=== PATIENT | male | born 1945 | race Caucasian/White ===

== ENCOUNTER 2020-03-23 11:42 | Observation (INO) | payer MEDICARE, OTHER ==
[2020-03-23] MEDS ORDERED: Aspirin 81 MG Tab.Chew PO ONE (11:58)
[2020-03-23] MEDS ORDERED: Nitroglycerin 0.4 MG Tab.SL SL ONE (11:58)
[2020-03-23] MEDS ORDERED: Aspirin 81 MG Tab.Chew ONE (12:00)
[2020-03-23] MEDS ORDERED: Nitroglycerin 0.4 MG Tab.SL ONE (12:00)
[2020-03-23 12:28] LABS: PTT,PARTIAL THROMBOPLSTIN TIME 28.3 SEC (24.5-32.8)
[2020-03-23 12:40] LABS: CHLORIDE,CL 97 mmol/L (98-107); SODIUM,NA 136 mmol/L (136-145)
[2020-03-23] MEDS ORDERED: Clindamycin in 0.9 % Sod Chlor 600 MG in Premix Bag 1 BAG IV ONE ×2 (13:28)
[2020-03-23] MEDS ORDERED: Sodium Chloride 0.9% 1,000 ML IV ONE (13:29)
--- NOTE | 2020-03-23 13:39 | EDM.PDOC ---
ED HPI GENERAL MEDICAL PROBLEM - General Chief Complaint: Cardiovascular Problem Stated Complaint: chest discomfort Time Seen by Provider: 03/23/20 12:00 Source of Information: Reports: Patient, Provider History Limitations: Reports: No Limitations - History of Present Illness INITIAL COMMENTS - FREE TEXT/NARRATIVE: Patient sent from [place] home for evaluation of two day history central anterior chest discomfort. First noted the discomfort Saturday morning. Slightly worse with deep breath. No changes with movement. A bit better when he lays flat. No changes with eating/drinking/activity. /10 in severity. Pretty much constant. No previous similar pain. Denies recent illness/injury. No fever/chills. No new cough. Denies increased SOB. Has COPD. Is on supplemental O2 and nebs regularly. Mid-Sternal Pain Score (Numeric/FACES): 6 - Related Data Allergies Allergy/AdvReac Type Severity Reaction Status Date / Time No Known Allergies Allergy Verified 03/23/20 11:43 Home Meds: Home Meds Acetaminophen [Tylenol Extra Strength] 1,000 mg PO TID@,12,09/04/18 [ History] Albuterol Sulfate [Proair Respiclick] 2 inh INH Q6H PRN 09/04/18 [History] Budesonide/Formoterol Fumarate [Symbicort 160-4.5 Mcg Inhaler] 2 inh INH BID@ 0700,1630 09/04/18 [History] Empagliflozin [Jardiance] 10 mg PO DAILY@0700 09/04/18 [History] FLUoxetine HCl [Prozac] 20 mg PO DAILY@0700 09/04/18 [History] Furosemide [Lasix] 60 mg PO DAILY@0700 09/04/18 [History] Gabapentin [Neurontin] 200 mg PO DAILY@0700 09/04/18 [History] Gabapentin [Neurontin] 400 mg PO DAILY@2100 09/04/18 [History] Insulin Aspart [NovoLOG] 6 units SUBCUT DAILY@1630 09/04/18 [History] Insulin Aspart [NovoLOG] 8 units SUBCUT DAILY@1200 09/04/18 [History] Insulin Glarg,Human.Rec.Analog [Lantus] 50 units SUBCUT DAILY@0600 09/04/18 [ History] Insulin Glarg,Human.Rec.Analog [Lantus] 74 units SUBCUT DAILY@2100 09/04/18 [ History] Ipratropium/Albuterol Sulfate [Iprat-Albut 0.5-3(2.5) MG/3 ML] 1 ampule INH Q6H PRN 09/04/18 [History] Ipratropium/Albuterol Sulfate [Iprat-Albut 0.5-3(2.5) MG/3 ML] 1 vial INH BID@ ,09/04/18 [History] Ipratropium/Albuterol Sulfate [Iprat-Albut 0.5-3(2.5) mg/3 ml] 1 ampule INH Q4H PRN 09/04/18 [History] Losartan [Cozaar] 12.5 mg PO DAILY@69909/04/18 [History] Melatonin 9 mg PO DAILY@209909/04/18 [History] Metoprolol Tartrate 12.5 mg PO BID@,209909/04/18 [History] Omeprazole 20 mg PO BID@,209909/04/18 [History] Propylene Glycol/Peg 400 [Systane 0.3-0.4% Eye Drops] 1 drop EYEBOTH TID PRN [History] Sennosides/Docusate Sodium [Senna-Docusate Sodium Tablet] 2 tab PO BID@07, 162909/04/18 [History] Simvastatin [Zocor] 40 mg PO DAILY@209909/04/18 [History] Tiotropium [Spiriva HandiHaler] 2 inh INH DAILY@69909/04/18 [History] Triamcinolone Acetonide [Triamcinolone Acetonide 0.025%] 1 dose TOP BID PRN [History] glipiZIDE [Glucotrol] 20 mg PO BID@,162909/04/18 [History] metFORMIN HCl [Metformin HCl] 1,000 mg PO BID@07,162909/04/18 [History] polyethylene glycoL 3350 [MiraLAX] 17 gm PO DAILY PRN 09/04/18 [History] predniSONE [Prednisone] 5 mg PO DAILY@0709/04/18 [History] Gabapentin [Neurontin] 100 mg PO BEDTIME 03/23/20 [History] Mag Hydrox/Aluminum Hyd/Simeth [Mylanta Maximum Strength Liq] 20 ml PO QID PRN 03/23/20 [History] Past Medical History HEENT History: Reports: Impaired Vision Cardiovascular History: Reports: Heart Failure, High Cholesterol, Hypertension, PVD Respiratory History: Reports: COPD, Other (See Below) Other Respiratory History: Oxygen dependant COPD Gastrointestinal History: Reports: Other (See Below) Other Gastrointestinal History: Heme positive stools x 3 Genitourinary History: Reports: Other (See Below) Other Genitourinary History: Chronic Kidney Disease Musculoskeletal History: Reports: Back Pain, Chronic Neurological History: Reports: Headaches, Chronic Psychiatric History: Reports: Depression Endocrine/Metabolic History: Reports: Diabetes, Type II, Obesity/BMI 30+ Hematologic History: Reports: Polycythemia - Past Surgical History GI Surgical History: Reports: Colonoscopy Social & Family History - Tobacco Use Smoking Status *Q: Former Smoker Used Tobacco, but Quit: Yes Month/Year Tobacco Last Used: - Caffeine Use Caffeine Use: Reports: Coffee, Soda - Recreational Drug Use Recreational Drug Use: No ED ROS GENERAL - Review of Systems Review Of Systems: See Below Constitutional: Denies: Fever, Chills, Malaise, Weakness, Night Sweats, Diaphoresis, Decreased Appetite, Weight Loss, Weight Gain HEENT: Denies: Rhinitis, Sinus Problem, Throat Pain, Throat Swelling, Vertigo, Vision Change Respiratory: Reports: Pleuritic Chest Pain, Other (No acute changes in regards to cough/wheeze/SOB from baseline). Denies: Sputum Cardiovascular: Reports: Chest Pain. Denies: Edema, Lightheadedness, Palpitations, Syncope GI/Abdominal: Reports: No Symptoms : Reports: No Symptoms Musculoskeletal: Reports: Other (no acute changes from baseline) Skin: Reports: Other (no acute changes) Neurological: Denies: Confusion, Dizziness, Headache, Numbness, Paresthesia, Trouble Speaking, Change in Speech Psychiatric: Reports: No Symptoms Immunologic: Reports: No Symptoms ED EXAM, GENERAL - Physical Exam Exam: See Below Exam Limited By: No Limitations General Appearance: Alert, WD/WN, No Apparent Distress Eye Exam: Bilateral Eye: EOMI, PERRL Ears: Normal External Exam, Hearing Grossly Normal Nose: No: Nasal Deformity, Nasal Swelling, Nasal Drainage Throat/Mouth: Normal Lips, Normal Voice, No Airway Compromise Head: Atraumatic, Normocephalic Neck: Supple, Non-Tender, Full Range of Motion. No: Lymphadenopathy (L), Lymphadenopathy (R) Respiratory/Chest: No Respiratory Distress, Decreased Breath Sounds (throughout) , Rhonchi (mild/bilat), Wheezing (mild/bilat). No: Crackles, Rales, Stridor, Accessory Muscle Use, Retractions Cardiovascular: Regular Rate, Rhythm, No Edema, No Murmur Peripheral Pulses: 2+: Radial (L), Radial (R) GI/Abdominal: Soft, Non-Tender, Abnormal Bowel Sounds (diminished in general), Other (obese) (Male) Exam: Deferred Rectal (Males) Exam: Deferred Back Exam: No: CVA Tenderness (L), CVA Tenderness (R), Muscle Spasm Extremities: Non-Tender, Normal Capillary Refill, Other (equal strength) Neurological: Alert, Oriented, Normal Cognition, No Motor/Sensory Deficits Psychiatric: Normal Affect, Normal Mood Skin Exam: Warm, Dry, Intact, Normal Color EKG INTERPRETATION EKG Date: 03/23/20 Time: 11:52 Rhythm: NSR Rate (Beats/Min): 88 Logan: LAD-Left Logan Deviation P-Wave: Present QRS: Normal ST-T: Normal QT: Normal Course - Vital Signs Last Recorded V/S: Last Vital Signs Temp 35.9 C L 03/23/20 11:43 Pulse 90 03/23/20 13:40 Resp 17 03/23/20 13:40 BP 129/89 03/23/20 13:40 Pulse Ox 97 03/23/20 13:40 - Orders/Labs/Meds Orders: Active Orders 24 hr Category Date Time Status EKG Documentation Completion [RC] ASDIRECTED Care 03/23/20 12:05 Active Chest 2V [CR] Stat Exams 03/23/20 11:58 Taken Sodium Chloride 0.9% [Normal Saline] 1,000 ml Med 03/23/20 13:29 Ordered IV .BOLUS EKG 12 Lead [EK] Stat Ther 03/23/20 11:58 Ordered Medication Orders Acetaminophen (Tylenol Extra Strength) 1,000 mg PO TID@07,12,21 LAURA Albuterol/Ipratropium (Duoneb 3.0-0.5 Mg/3 Ml) 3 ml INH Q4H PRN PRN Reason: Dyspnea Albuterol/Ipratropium (Duoneb 3.0-0.5 Mg/3 Ml) 3 ml INH Q6H PRN PRN Reason: Dyspnea Albuterol/Ipratropium (Duoneb 3.0-0.5 Mg/3 Ml) 3 ml INH BID@0700,2100 PENDING SALE TO [facility] Fluoxetine HCl (Prozac) 20 mg PO DAILY@0700 PENDING SALE TO [facility] Furosemide (Lasix) 60 mg PO DAILY@0700 PENDING SALE TO [facility] Gabapentin (Neurontin) 100 mg PO BEDTIME LAURA Gabapentin (Neurontin) 200 mg PO DAILY@0700 PENDING SALE TO [facility] Gabapentin (Neurontin) 400 mg PO DAILY@2100 PENDING SALE TO [facility] Sodium Chloride (Normal Saline) 1,000 mls @ 125 mls/hr IV .BOLUS ONE Stop: 03/23/20 21:28 Last Admin: 03/23/20 13:44 Dose: 125 mls/hr Clindamycin/Sodium Chloride (600 mg/ Premix) 50 mls @ 150 mls/hr IV Q8H PENDING SALE TO [facility] Insulin Glargine (Lantus) 50 unit SUBCUT DAILY@0600 PENDING SALE TO [facility] Insulin Glargine (Lantus) 74 unit SUBCUT DAILY@2100 PENDING SALE TO [facility] Melatonin (Melatonin) 9 mg PO DAILY@2100 PENDING SALE TO [facility] Metoprolol Tartrate (Lopressor) 12.5 mg PO BID@ PENDING SALE TO [facility] Non-Formulary Medication (Budesonide/Formoterol) 2 inh INH BID@07,1630 PENDING SALE TO [facility] Non-Formulary Medication (Glipizide [Glucotrol]) 20 mg PO BID@,1630 PENDING SALE TO [facility] Non-Formulary Medication (Insulin Aspart) 6 units SUBCUT DAILY@1630 PENDING SALE TO [facility] Non-Formulary Medication (Insulin Aspart) 8 units SUBCUT DAILY@1200 PENDING SALE TO [facility] Non-Formulary Medication (Losartan [Cozaar]) 12.5 mg PO DAILY@0700 PENDING SALE TO [facility] Non-Formulary Medication (Mag Hydrox/Aluminum Hyd/Simeth [Mylanta Maximum Strength Liq]) 20 ml PO QID PRN PRN Reason: Indigestion Non-Formulary Medication (Metformin Hcl [Metformin Hcl]) 1,000 mg PO BID@0700, 1630 PENDING SALE TO [facility] Non-Formulary Medication (Propylene Glycol/Peg 400 [Systane 0.3-0.4% Eye Drops] ) 1 drop EYEBOTH TID PRN PRN Reason: Dry Eyes Non-Formulary Medication (Simvastatin [Zocor]) 40 mg PO DAILY@2100 PENDING SALE TO [facility] Pantoprazole Sodium (Protonix Iv) 40 mg IVPUSH DAILY PENDING SALE TO [facility] Polyethylene Glycol (Miralax) 17 gm PO DAILY PRN PRN Reason: Constipation Prednisone (Prednisone) 5 mg PO DAILY@0700 PENDING SALE TO [facility] Senna/Docusate Sodium (Senna Plus) 2 tab PO BID@0700,1630 PENDING SALE TO [facility] Tiotropium Hurley (Spiriva Handihaler) mcg INH DAILY@0700 PENDING SALE TO [facility] Triamcinolone Acetonide (Triamcinolone Acetonide 0.025%) gm TOP BID PRN PRN Reason: Rash Labs: Laboratory Tests 03/23/20 03/23/20 03/23/20 Range/Units 12:00 12:00 12:00 WBC 11.8 H (4.0-10.2) K/uL RBC 5.69 H (4.33-5.41) M/uL Hgb 14.8 (13.1-16.8) g/dL Hct 47.9 (39.0-49.0) % MCV 84.2 (84.0-98.0) fL MCH 26.0 L (28.2-33.3) pg MCHC 30.9 L (31.7-36.0) g/dL RDW 17.2 H (11.2-14.1) % Plt Count 296 (150-350) K/uL Neut % (Auto) 82.2 H (45.0-80.0) % Lymph % (Auto) 10.5 (10.0-50.0) % [place] % (Auto) 6.5 (2.0-14.0) % Eos % (Auto) 0.5 (0.0-5.0) % Baso % (Auto) 0.3 (0.0-2.0) % Neut # (Auto) 9.73 H (1.40-7.00) K/uL Lymph # (Auto) 1.24 (0.50-3.50) K/uL [place] # (Auto) 0.77 (0.00-1.00) K/uL Eos # (Auto) 0.06 (0.00-0.50) K/uL Baso # (Auto) 0.03 (0.00-0.20) K/uL PT 9.4 L (9.5-12.0) SEC INR 0.9 APTT 28.3 (24.5-32.8) SEC D-Dimer, Quantitative < 100 (0-400) ng/mL Sodium (136-145) mmol/L Potassium (3.5-5.1) mmol/L Chloride (98-107) mmol/L Carbon Dioxide (21.0-32.0) mmol/L BUN (7-18) mg/dL Creatinine (0.51-1.17) mg/dL Est Cr Clr Drug Dosing Estimated GFR (MDRD) mL/min Glucose (74-106) mg/dL Lactic Acid (0.4-2.0) mmol/L Calcium (8.5-10.1) mg/dL Magnesium (1.8-2.4) mg/dL Total Bilirubin (0.2-1.0) mg/dL AST (15-37) U/L ALT (12-78) U/L Alkaline Phosphatase (46-116) IU/L Creatine Kinase (26-308) U/L Creatine Kinase Index (0.0-2.5) % CK-MB (CK-2) (0.00-3.60) ng/mL Troponin I (0.000-0.056) ng/mL NT-Pro-B Natriuret Pep (0-125) pg/mL Total Protein (6.4-8.2) g/dL Albumin (3.4-5.0) g/dL TSH, Ultra Sensitive (0.358-3.740) mIU/mL 03/23/20 03/23/20 03/23/20 Range/Units 12:00 12:00 12:00 WBC (4.0-10.2) K/uL RBC (4.33-5.41) M/uL Hgb (13.1-16.8) g/dL Hct (39.0-49.0) % MCV (84.0-98.0) fL MCH (28.2-33.3) pg MCHC (31.7-36.0) g/dL RDW (11.2-14.1) % Plt Count (150-350) K/uL Neut % (Auto) (45.0-80.0) % Lymph % (Auto) (10.0-50.0) % [place] % (Auto) (2.0-14.0) % Eos % (Auto) (0.0-5.0) % Baso % (Auto) (0.0-2.0) % Neut # (Auto) (1.40-7.00) K/uL Lymph # (Auto) (0.50-3.50) K/uL [place] # (Auto) (0.00-1.00) K/uL Eos # (Auto) (0.00-0.50) K/uL Baso # (Auto) (0.00-0.20) K/uL PT (9.5-12.0) SEC INR APTT (24.5-32.8) SEC D-Dimer, Quantitative (0-400) ng/mL Sodium 136 (136-145) mmol/L Potassium 4.5 (3.5-5.1) mmol/L Chloride 97 L (98-107) mmol/L Carbon Dioxide 30.1 (21.0-32.0) mmol/L BUN 27 H (7-18) mg/dL Creatinine 1.11 (0.51-1.17) mg/dL Est Cr Clr Drug Dosing TNP Estimated GFR (MDRD) > 60 mL/min Glucose 194 H (74-106) mg/dL Lactic Acid 3.2 H (0.4-2.0) mmol/L Calcium 9.0 (8.5-10.1) mg/dL Magnesium 2.0 (1.8-2.4) mg/dL Total Bilirubin 0.4 (0.2-1.0) mg/dL AST 24 (15-37) U/L ALT 35 (12-78) U/L Alkaline Phosphatase 86 (46-116) IU/L Creatine Kinase 52 (26-308) U/L Creatine Kinase Index 3.8 H (0.0-2.5) % CK-MB (CK-2) 2.00 (0.00-3.60) ng/mL Troponin I 0.000 (0.000-0.056) ng/mL NT-Pro-B Natriuret Pep 94 (0-125) pg/mL Total Protein 7.4 (6.4-8.2) g/dL Albumin 3.3 L (3.4-5.0) g/dL TSH, Ultra Sensitive 0.831 (0.358-3.740) mIU/mL Meds: Medications Generic Name Dose Route Start Last Admin Trade Name Freq PRN Reason Stop Dose Admin Acetaminophen 1,000 mg 03/23/20 21:00 Tylenol Extra Strength PO TID@, PENDING SALE TO [facility] Albuterol/Ipratropium 3 ml 03/23/20 14:25 Duoneb 3.0-0.5 Mg/3 Ml INH Q4H PRN Dyspnea Albuterol/Ipratropium 3 ml 03/23/20 15:00 Duoneb 3.0-0.5 Mg/3 Ml INH Q6H PRN Dyspnea Albuterol/Ipratropium 3 ml 03/23/20 21:00 Duoneb 3.0-0.5 Mg/3 Ml INH BID@0700,2100 PENDING SALE TO [facility] Fluoxetine HCl 20 mg 03/24/20 07:00 Prozac PO DAILY@0700 PENDING SALE TO [facility] Furosemide 60 mg 03/24/20 07:00 Lasix PO DAILY@0700 PENDING SALE TO [facility] Gabapentin 100 mg 03/23/20 20:00 Neurontin PO BEDTIME PENDING SALE TO [facility] Gabapentin 200 mg 03/24/20 07:00 Neurontin PO DAILY@0700 PENDING SALE TO [facility] Gabapentin 400 mg 03/23/20 21:00 Neurontin PO DAILY@2100 PENDING SALE TO [facility] Sodium Chloride 1,000 mls @ 125 mls/hr 03/23/20 13:29 03/23/20 13:44 Normal Saline IV 03/23/20 21:28 125 mls/hr .BOLUS ONE Administration Clindamycin/Sodium Chloride 50 mls @ 150 mls/hr 03/23/20 22:00 600 mg/ Premix IV Q8H PENDING SALE TO [facility] Insulin Glargine 50 unit 03/24/20 06:00 Lantus SUBCUT DAILY@0600 PENDING SALE TO [facility] Insulin Glargine 74 unit 03/23/20 21:00 Lantus SUBCUT DAILY@2100 PENDING SALE TO [facility] Melatonin 9 mg 03/23/20 21:00 Melatonin PO DAILY@2100 PENDING SALE TO [facility] Metoprolol Tartrate 12.5 mg 03/23/20 21:00 Lopressor PO BID@07,2100 PENDING SALE TO [facility] Non-Formulary Medication 2 inh 03/23/20 16:30 Budesonide/Formoterol INH BID@0700,1630 PENDING SALE TO [facility] Non-Formulary Medication 20 mg 03/23/20 16:30 Glipizide [Glucotrol] PO BID@07,1630 PENDING SALE TO [facility] Non-Formulary Medication 6 units 03/23/20 16:30 Insulin Aspart SUBCUT DAILY@1630 PENDING SALE TO [facility] Non-Formulary Medication 8 units 03/24/20 12:00 Insulin Aspart SUBCUT DAILY@1200 PENDING SALE TO [facility] Non-Formulary Medication 12.5 mg 03/24/20 07:00 Losartan [Cozaar] PO DAILY@0700 PENDING SALE TO [facility] Non-Formulary Medication 20 ml 03/23/20 14:25 Mag Hydrox/Aluminum Hyd/Simeth [Mylanta Maximum Strength Liq] PO QID PRN Indigestion Non-Formulary Medication 1,000 mg 03/23/20 16:30 Metformin Hcl [Metformin Hcl] PO BID@0700,1630 PENDING SALE TO [facility] Non-Formulary Medication 1 drop 03/23/20 14:25 Propylene Glycol/Peg 400 [Systane 0.3-0.4% Eye Drops] EYEBOTH TID PRN Dry Eyes Non-Formulary Medication 40 mg 03/23/20 21:00 Simvastatin [Zocor] PO DAILY@2100 PENDING SALE TO [facility] Pantoprazole Sodium 40 mg 03/23/20 14:30 Protonix Iv IVPUSH DAILY PENDING SALE TO [facility] Polyethylene Glycol 17 gm 03/23/20 14:25 Miralax PO DAILY PRN Constipation Prednisone 5 mg 03/24/20 07:00 Prednisone PO DAILY@0700 PENDING SALE TO [facility] Senna/Docusate Sodium 2 tab 03/23/20 16:30 Senna Plus PO BID@0700,1630 PENDING SALE TO [facility] Tiotropium Hurley mcg 03/24/20 07:00 Spiriva Handihaler INH DAILY@0700 PENDING SALE TO [facility] Triamcinolone Acetonide gm 03/23/20 14:25 Triamcinolone Acetonide 0.025% TOP BID PRN Rash Discontinued Medications Generic Name Dose Route Start Last Admin Trade Name Freq PRN Reason Stop Dose Admin Aspirin Confirm 03/23/20 12:00 03/23/20 12:16 Aspirin Administered 03/23/20 12:01 Not Given Dose 324 mg .ROUTE .STK-MED ONE Aspirin 324 mg 03/23/20 11:58 03/23/20 12:03 Aspirin PO 03/23/20 11:59 324 mg ONETIME ONE Administration Clindamycin/Sodium Chloride 50 mls @ 150 mls/hr 03/23/20 13:28 03/23/20 13:36 600 mg/ Premix IV 03/23/20 13:47 150 mls/hr ONETIME ONE Administration Ketorolac Tromethamine 15 mg 03/23/20 14:29 Toradol IM 03/23/20 14:30 ONETIME ONE Nitroglycerin Confirm 03/23/20 12:00 03/23/20 12:16 Nitrostat Administered 03/23/20 12:01 Not Given Dose 0.4 mg .ROUTE .STK-MED ONE Nitroglycerin 0.4 mg 03/23/20 11:58 03/23/20 12:16 Nitrostat SL 03/23/20 11:59 0.4 mg ONETIME ONE Administration - Radiology Interpretation Free Text/Narrative:: Chest xray--no noted pneumothorax. No obvious pneumonia. Does have some mild changes inferiorly, more so on right, that could indicate atelectasis. CAnnot rule out early pneumonia. Possible small pleural effusion on right. Pending formal radiology review. - Re-Assessments/Exams Free Text/Narrative Re-Assessment/Exam: 03/23/20 14:08 WBC elevated mildly. Lactic acid 3.2. Troponin/ProBNP normal. DDimer normal. Cannot rule out early pneumonia. Initial cardiac workup unremarkable. Plan is to admit to observation for telemetry/serial troponins and initiate antibiotics for possible pneumonia given xray changes. Anticipate discharge home tomorrow or the day after if cardiac labs unremarkable, patient doesn't show any decline, and Lactic Acid improves. Call place to [facility]. Patient reviewed with Isabela educational technology coordinator. [facility] declined having patient transferred to their facility at this time and are good with him being observed here at the [facility]. Departure - Departure Time of Disposition: 14:12 Disposition: Refer to Observation Condition: Good Clinical Impression: Chest pain Sepsis Event Note - Evaluation Sepsis Screening Result: No Definite Risk - Focused Exam Vital Signs: Vital Signs Temp Pulse Resp BP BP Pulse Ox 03/23/20 13:40 90 17 129/89 97 03/23/20 13:30 88 20 97 03/23/20 13:00 93 17 111/64 97 03/23/20 12:45 95 18 103/68 97 03/23/20 12:30 93 19 101/63 96 03/23/20 12:16 120/84 03/23/20 12:15 93 19 101/63 96 03/23/20 11:53 87 19 120/81 98 03/23/20 11:43 35.9 C L 88 15 121/73 98 Date Exam was Performed: 03/23/20 Time Exam was Performed: 15:02 - Problem List & Annotations (1) Chest pain SNOMED Code(s): 13775438 Code(s): R07.9 - CHEST PAIN, UNSPECIFIED Status: Acute Priority: High Current Visit: Yes Onset Date: 03/21/20 Annotation/Comment:: Has pleuritic component. EKG/troponin unremarkable. Suspect likely respiratory in etiology. Admit for serial troponins/Telemetry. Initiate Doxy coverage for pneumonia Qualifiers: Chest pain type: other chest pain Qualified Code(s): R07.89 - Other chest pain; R07.8 - Other chest pain (2) Elevated lactic acid level SNOMED Code(s): 6681781 Code(s): R79.89 - OTHER SPECIFIED ABNORMAL FINDINGS OF BLOOD CHEMISTRY Status: Acute Priority: Medium Current Visit: Yes Annotation/Comment:: Lactic acid 3.2 No clinical evidence fo sepsis. Initiate IV fluid/Doxy. Recheck level tomorrow (3) Hyperlipidemia SNOMED Code(s): 04614601 Code(s): E78.5 - HYPERLIPIDEMIA, UNSPECIFIED Status: Chronic Current Visit: Yes Annotation/Comment:: Under therapy Qualifiers: Hyperlipidemia type: unspecified Qualified Code(s): E78.5 - Hyperlipidemia , unspecified (4) HTN (hypertension) SNOMED Code(s): 66594618 Code(s): I10 - ESSENTIAL (PRIMARY) HYPERTENSION Status: Chronic Priority : Low Current Visit: Yes Annotation/Comment:: Observe trends (5) PVD (peripheral vascular disease) SNOMED Code(s): 194419707 Code(s): I73.9 - PERIPHERAL VASCULAR DISEASE, UNSPECIFIED Status: Chronic Priority: Low Current Visit: No (6) COPD (chronic obstructive pulmonary disease) SNOMED Code(s): 98627352 Code(s): J44.9 - CHRONIC OBSTRUCTIVE PULMONARY DISEASE, UNSPECIFIED Status : Chronic Priority: Medium Current Visit: Yes Annotation/Comment:: Under therapy. Stable Qualifiers: COPD type: unspecified COPD Qualified Code(s): J44.9 - Chronic obstructive pulmonary disease, unspecified (7) History of home oxygen therapy SNOMED Code(s): 876795332 Code(s): Z99.81 - DEPENDENCE ON SUPPLEMENTAL OXYGEN Status: Acute Priority: Low Current Visit: No (8) Heme + stool SNOMED Code(s): 80129794 Code(s): R19.5 - OTHER FECAL ABNORMALITIES Status: Inactive Priority: Low Current Visit: No (9) CKD (chronic kidney disease) SNOMED Code(s): 228870177 Code(s): N18.9 - CHRONIC KIDNEY DISEASE, UNSPECIFIED Status: Chronic Priority: Low Current Visit: No Annotation/Comment:: stable per patient Qualifiers: Chronic kidney disease stage: unspecified stage Qualified Code(s): N18.9 - Chronic kidney disease, unspecified (10) Chronic back pain SNOMED Code(s): 879446939 Code(s): M54.9 - DORSALGIA, UNSPECIFIED; G89.29 - OTHER CHRONIC PAIN Status : Chronic Priority: Low Current Visit: No Qualifiers: Back pain location: back pain in unspecified location (11) Obese SNOMED Code(s): 595517331, 425697562 Code(s): E66.9 - OBESITY, UNSPECIFIED Status: Chronic Priority: Low Current Visit: Yes Qualifiers: Obesity type: unspecified obesity type (12) Diabetes mellitus type 2 in obese SNOMED Code(s): 10814344 Code(s): E11.69 - TYPE 2 DIABETES MELLITUS WITH OTHER SPECIFIED COMPLICATION ; E66.9 - OBESITY, UNSPECIFIED Status: Chronic Priority: Low Current Visit : Yes Annotation/Comment:: observe trends (13) Chronic headache SNOMED Code(s): 231798167 Code(s): R51 - HEADACHE Status: Chronic Priority: Low Current Visit: No Qualifiers: Headache type: unspecified (14) Depression SNOMED Code(s): 53835825 Code(s): F32.9 - MAJOR DEPRESSIVE DISORDER, SINGLE EPISODE, UNSPECIFIED Status: Chronic Priority: Low Current Visit: No Annotation/Comment:: stable per patient Qualifiers: Depression Type: unspecified Qualified Code(s): F32.9 - Major depressive disorder, single episode, unspecified (15) Polycythemia SNOMED Code(s): 199577435 Code(s): D75.1 - SECONDARY POLYCYTHEMIA Status: Chronic Priority: Low Current Visit: Yes - Problem List Review Problem List Initiated/Reviewed/Updated: Yes - My Orders Last 24 Hours: My Active Orders 03/23/20 11:58 Chest 2V [CR] Stat EKG 12 Lead [EK] Stat 03/23/20 12:05 EKG Documentation Completion [RC] ASDIRECTED 03/23/20 13:29 Sodium Chloride 0.9% [Normal Saline] 1,000 ml IV .BOLUS - Assessment/Plan Admission H&P: Please use this note as an admission H&P Last 24 Hours: My Active Orders 03/23/20 11:58 Chest 2V [CR] Stat EKG 12 Lead [EK] Stat 03/23/20 12:05 EKG Documentation Completion [RC] ASDIRECTED 03/23/20 13:29 Sodium Chloride 0.9% [Normal Saline] 1,000 ml IV .BOLUS Assessment:: as above. Plan: as above. Stable/appropriate for general supervision. Anticipate 24-48 hour stay depending on clinical course. Admit Observation for chest pain rule out.
[2020-03-23] MEDS ORDERED: Albuterol/Ipratropium 3.0-0.5 MG/3 ML Neb Soln INH PRN ×2 (14:25→15:00)
[2020-03-23] MEDS ORDERED: Polyethylene Glycol 3350 Powder 17 GM Packet PO PRN (14:25)
[2020-03-23] MEDS ORDERED: Non-Formulary Medication 1 Each (Propylene Glycol/Peg 400 [Systane 0.3-0.4% Eye Drops] 1 D EYEBOTH PRN (14:25)
[2020-03-23] MEDS ORDERED: Triamcinolone Acetonide 0.025% Crm 15 GM Tube TOP PRN (14:25)
[2020-03-23] MEDS ORDERED: Ketorolac 15 MG/ML SDV IM ONE (14:29)
[2020-03-23] MEDS ORDERED: Ketorolac 15 MG/ML SDV IVPUSH ONE (16:19)
[2020-03-23] MEDS ORDERED: Pantoprazole 40 MG Vial IVPUSH SCH (16:30)
[2020-03-23] MEDS ORDERED: INSULIN ASPART SUBCUT SCH (16:30)
[2020-03-23] MEDS: BUDESONIDE INH SCH (16:47)
[2020-03-23] MEDS: FORMOTEROL INH SCH (16:47)
[2020-03-23] MEDS: metFORMIN 500 MG Tab PO SCH (16:47)
[2020-03-23] MEDS: glipiZIDE 5 MG Tab PO SCH (16:47)
[2020-03-23] MEDS ORDERED: Albuterol/Ipratropium 3.0-0.5 MG/3 ML Neb Soln INH SCH (21:00)
[2020-03-23] MEDS ORDERED: Melatonin 3 MG Tab PO SCH (21:00)
[2020-03-23] MEDS ORDERED: Simvastatin 20 MG Tab PO SCH (21:00)
[2020-03-23] MEDS ORDERED: Gabapentin 400 MG Cap PO SCH (21:00)
[2020-03-23] MEDS ORDERED: Insulin Glarg,Human.Rec.Analog 100 Unit/ML SUBCUT SCH (21:00)
[2020-03-23] MEDS ORDERED: Gabapentin 100 MG Cap PO SCH (21:00)
[2020-03-23] MEDS: Clindamycin in 0.9 % Sod Chlor 600 MG in Premix Bag 1 BAG IV SCH ×2 (21:40)
[2020-03-23] MEDS: Acetaminophen 500 MG Tab PO SCH (21:42)
[2020-03-23] MEDS: Metoprolol Tartrate 25 MG Tab PO SCH (21:43)
[2020-03-24] MEDS: Clindamycin in 0.9 % Sod Chlor 600 MG in Premix Bag 1 BAG IV SCH ×2 (05:34)
[2020-03-24] MEDS: Sodium Chloride 0.9% 10 ML Syringe FLUSH PRN ×2 (05:50→05:51)
[2020-03-24] MEDS ORDERED: Furosemide 20 MG Tab PO SCH (07:00)
[2020-03-24] MEDS ORDERED: FLUoxetine 20 MG Cap PO SCH (07:00)
[2020-03-24] MEDS ORDERED: Gabapentin 100 MG Cap PO SCH (07:00)
[2020-03-24] MEDS ORDERED: predniSONE 5 MG Tab PO SCH (07:00)
[2020-03-24] MEDS ORDERED: Non-Formulary Medication 1 Each (Empagliflozin [Jardiance] 10 MG) PO SCH (07:00)
[2020-03-24] MEDS ORDERED: Losartan 50 MG Tab PO SCH (07:00)
[2020-03-24] MEDS ORDERED: Tiotropium Inhaler 18 MCG Inhalation Powder Cap Kit of 5 INH SCH (07:00)
[2020-03-24] MEDS ORDERED: JARDIANCE 10 MG PO SCH (07:00)
[2020-03-24] MEDS ORDERED: Insulin Glarg,Human.Rec.Analog 100 Unit/ML SUBCUT SCH (07:00)
[2020-03-24 07:38] LABS: CHLORIDE,CL 104 mmol/L (98-107); SODIUM,NA 140 mmol/L (136-145)
[2020-03-24] MEDS: FORMOTEROL INH SCH (08:05)
[2020-03-24] MEDS: BUDESONIDE INH SCH (08:05)
[2020-03-24] MEDS: metFORMIN 500 MG Tab PO SCH (08:07)
[2020-03-24] MEDS: Acetaminophen 500 MG Tab PO SCH (08:08)
[2020-03-24] MEDS: Metoprolol Tartrate 25 MG Tab PO SCH (08:11)
[2020-03-24] MEDS: glipiZIDE 5 MG Tab PO SCH (08:20)
--- NOTE | 2020-03-24 11:15 | PCM.DCSUM1 ---
Discharge Summary - Hospital Course Brief History: Admitted observation for further evaluation of central chest pain and lactic acid elevation. Serial troponins/cardiac monitoring initiated. Diagnosis: Stroke: No - Discharge Data Discharge Date: 03/24/20 Discharge Disposition: Home, Self-Care 01 Condition: Good - Referral to Home Health Primary Care Physician: JULIO C Doll - Discharge Diagnosis/Problem(s) (1) Chest pain SNOMED Code(s): 01840734 ICD Code: R07.9 - CHEST PAIN, UNSPECIFIED Status: Acute Priority: High Current Visit: Yes Onset Date: 03/21/20 Problem Details: Had pleuritic component. Completely resolved yesterday after admission. EKG/troponin unremarkable. Suspect likely respiratory in etiology. Admitted for serial troponins/Telemetry. Initiated Clinda coverage for possible pneumonia. No acute findings on chest xray per Radiology. Will discharge on Doxy. Qualifiers: Chest pain type: other chest pain Qualified Code(s): R07.89 - Other chest pain; R07.8 - Other chest pain (2) Elevated lactic acid level SNOMED Code(s): 5029253 ICD Code: R79.89 - OTHER SPECIFIED ABNORMAL FINDINGS OF BLOOD CHEMISTRY Status: Acute Priority: Medium Current Visit: Yes Problem Details: Normalized today. (3) Hyperlipidemia SNOMED Code(s): 27436908 ICD Code: E78.5 - HYPERLIPIDEMIA, UNSPECIFIED Status: Chronic Current Visit: Yes Problem Details: Under therapy Qualifiers: Hyperlipidemia type: unspecified Qualified Code(s): E78.5 - Hyperlipidemia , unspecified (4) HTN (hypertension) SNOMED Code(s): 49019392 ICD Code: I10 - ESSENTIAL (PRIMARY) HYPERTENSION Status: Chronic Priority : Low Current Visit: Yes Problem Details: Observe trends (5) PVD (peripheral vascular disease) SNOMED Code(s): 802200705 ICD Code: I73.9 - PERIPHERAL VASCULAR DISEASE, UNSPECIFIED Status: Chronic Priority: Low Current Visit: No (6) COPD (chronic obstructive pulmonary disease) SNOMED Code(s): 52651335 ICD Code: J44.9 - CHRONIC OBSTRUCTIVE PULMONARY DISEASE, UNSPECIFIED Status : Chronic Priority: Medium Current Visit: Yes Problem Details: Under therapy. Stable Qualifiers: COPD type: unspecified COPD Qualified Code(s): J44.9 - Chronic obstructive pulmonary disease, unspecified (7) History of home oxygen therapy SNOMED Code(s): 499001127 ICD Code: Z99.81 - DEPENDENCE ON SUPPLEMENTAL OXYGEN Status: Acute Priority: [facility] Current Visit: No (8) CKD (chronic kidney disease) SNOMED Code(s): 299005864 ICD Code: N18.9 - CHRONIC KIDNEY DISEASE, UNSPECIFIED Status: Chronic Priority: [facility] Current Visit: No Problem Details: stable per patient Qualifiers: Chronic kidney disease stage: unspecified stage Qualified Code(s): N18.9 - Chronic kidney disease, unspecified (9) Chronic back pain SNOMED Code(s): 700270055 ICD Code: M54.9 - DORSALGIA, UNSPECIFIED; G89.29 - OTHER CHRONIC PAIN Status: Chronic Priority: [facility] Current Visit: No Qualifiers: Back pain location: back pain in unspecified location (10) Obese SNOMED Code(s): 798454360, 984470391 ICD Code: E66.9 - OBESITY, UNSPECIFIED Status: Chronic Priority: [facility] Current Visit: Yes Qualifiers: Obesity type: unspecified obesity type (11) Diabetes mellitus type 2 in obese SNOMED Code(s): 83226299 ICD Code: E11.69 - TYPE 2 DIABETES MELLITUS WITH OTHER SPECIFIED COMPLICATION ; E66.9 - OBESITY, UNSPECIFIED Status: Chronic Priority: [facility] Current Visit : Yes Problem Details: observe trends (12) Chronic headache SNOMED Code(s): 641004931 ICD Code: R51 - HEADACHE Status: Chronic Priority: [facility] Current Visit: No Qualifiers: Headache type: unspecified (13) Depression SNOMED Code(s): 72251624 ICD Code: F32.9 - MAJOR DEPRESSIVE DISORDER, SINGLE EPISODE, UNSPECIFIED Status: Chronic Priority: [facility] Current Visit: No Problem Details: stable per patient Qualifiers: Depression Type: unspecified Qualified Code(s): F32.9 - Major depressive disorder, single episode, unspecified (14) Polycythemia SNOMED Code(s): 956407454 ICD Code: D75.1 - SECONDARY POLYCYTHEMIA Status: Chronic Priority: [facility] Current Visit: Yes - Patient Summary/Data Hospital Course: Chest pain complaint resolved shortly after admission and did not return. Telemetry continued. IV fluid at 125ml/hr. Patient felt like "usual self" for remainder of stay. Negative serial troponins. Normalization of lactic acid this morning. Unremarkable telemetry. Vital signs stable. OK to return to [facility]. Will continue patient on Doxy as precaution given hx of chronic lung disease and pleuritic behavior of chest pain complaint. - Patient Instructions Diet: Usual Diet as Tolerated Activity: As Tolerated Notify Provider of: Fever, Increased Pain - Discharge Plan *PRESCRIPTION DRUG MONITORING PROGRAM REVIEWED*: Not Applicable *COPY OF PRESCRIPTION DRUG MONITORING REPORT IN PATIENT [place]: Not Applicable Prescriptions/Med Rec: Doxycycline [Vibramycin] 100 mg PO BID #14 cap Home Medications: Home Meds Acetaminophen [Tylenol Extra Strength] 1,000 mg PO TID@07,,21 09/04/18 [ History] Albuterol Sulfate [Proair Respiclick] 2 inh INH Q6H PRN 09/04/18 [History] Budesonide/Formoterol Fumarate [Symbicort 160-4.5 Mcg Inhaler] 2 inh INH BID@ 0700,1630 09/04/18 [History] Empagliflozin [Jardiance] 10 mg PO DAILY@0700 09/04/18 [History] FLUoxetine HCl [Prozac] 20 mg PO DAILY@0700 09/04/18 [History] Furosemide [Lasix] 60 mg PO DAILY@0700 09/04/18 [History] Gabapentin [Neurontin] 200 mg PO DAILY@0700 09/04/18 [History] Gabapentin [Neurontin] 400 mg PO DAILY@2100 09/04/18 [History] Insulin Aspart [NovoLOG] 6 units SUBCUT DAILY@1630 09/04/18 [History] Insulin Aspart [NovoLOG] 8 units SUBCUT DAILY@1200 09/04/18 [History] Insulin Glarg,Human.Rec.Analog [Lantus] 50 units SUBCUT DAILY@0600 09/04/18 [ History] Insulin Glarg,Human.Rec.Analog [Lantus] 78 units SUBCUT DAILY@2100 09/04/18 [ History] Ipratropium/Albuterol Sulfate [Iprat-Albut 0.5-3(2.5) MG/3 ML] 1 ampule INH Q6H PRN 09/04/18 [History] Ipratropium/Albuterol Sulfate [Iprat-Albut 0.5-3(2.5) MG/3 ML] 1 vial INH BID@09/04/18 [History] Ipratropium/Albuterol Sulfate [Iprat-Albut 0.5-3(2.5) mg/3 ml] 1 ampule INH Q4H PRN 09/04/18 [History] Losartan [Cozaar] 12.5 mg PO DAILY@0709/04/18 [History] Melatonin 9 mg PO DAILY@209909/04/18 [History] Metoprolol Tartrate 12.5 mg PO BID@,209909/04/18 [History] Omeprazole 20 mg PO BID@,209909/04/18 [History] Propylene Glycol/Peg 400 [Systane 0.3-0.4% Eye Drops] 1 drop EYEBOTH TID PRN [History] Sennosides/Docusate Sodium [Senna-Docusate Sodium Tablet] 2 tab PO BID@0700, 16309/04/18 [History] Simvastatin [Zocor] 40 mg PO DAILY@209909/04/18 [History] Tiotropium [Spiriva HandiHaler] 2 inh INH DAILY@69909/04/18 [History] Triamcinolone Acetonide [Triamcinolone Acetonide 0.025%] 1 dose TOP BID PRN [History] glipiZIDE [Glucotrol] 20 mg PO BID@,162909/04/18 [History] metFORMIN HCl [Metformin HCl] 1,000 mg PO BID@0700,16309/04/18 [History] polyethylene glycoL 3350 [MiraLAX] 17 gm PO DAILY PRN 09/04/18 [History] predniSONE [Prednisone] 5 mg PO DAILY@0709/04/18 [History] Gabapentin [Neurontin] 100 mg PO BEDTIME 03/23/20 [History] Mag Hydrox/Aluminum Hyd/Simeth [Mylanta Maximum Strength Liq] 20 ml PO QID PRN 03/23/20 [History] Doxycycline [Vibramycin] 100 mg PO BID #14 cap 03/24/20 [Rx] Forms: ED Department Discharge Referrals: Kristen Sierra PA [Primary Care Provider] - - Discharge Summary/Plan Comment DC Time >30 min.: Yes (waiting for ride from [facility]) - General Info Date of Service: 03/24/20 Admission Dx/Problem (Free Text: Chest pain anterior/central chest for two days. Subjective Update: Patient feels like usual self. No acute complaints. Pain resolved. Functional Status: Reports: Pain Controlled, Tolerating Diet, Ambulating, Urinating. Denies: New Symptoms - Review of Systems General: Reports: No Symptoms HEENT: Reports: Glasses Pulmonary: Reports: Other (Patient feels he is at his baseline for COPD/ breathing. Always has some degree of SOB/wheezing and is on oxygen. ). Denies : Shortness of Breath, Pleuritic Chest Pain, Cough, Sputum, Hemoptysis Cardiovascular: Denies: Chest Pain, Palpitations, Orthopnea, Lightheadedness Gastrointestinal: Denies: Abdominal Pain, Diarrhea, Difficulty Swallowing, Hematochezia, Nausea, Vomiting Genitourinary: Denies: Dysuria, Frequency, Burning Musculoskeletal: Reports: Other (no acute changes from baseline) Skin: Denies: Rash Neurological: Reports: Other (denies acute neuro changes). Denies: Confusion, Dizziness, Headache, Change in Speech Psychiatric: Reports: No Symptoms - Patient Data Vitals - Most Recent: Last Vital Signs Temp 36.6 C 03/24/20 08:00 Pulse 80 03/24/20 08:11 Resp 16 03/24/20 08:00 BP 130/82 03/24/20 08:11 Pulse Ox 95 03/24/20 08:00 Weight - Most Recent: 114.759 kg I&O - Last 24 hours: Intake & Output 03/23/20 03/24/20 03/24/20 22:59 06:59 14:59 Intake Total 120 300 180 Balance 120 300 180 Lab Results - Last 24 hrs: Laboratory Results - last 24 hr 03/23/20 03/23/20 03/23/20 Range/Units 12:00 12:00 12:00 WBC 11.8 H (4.0-10.2) K/uL RBC 5.69 H (4.33-5.41) M/uL Hgb 14.8 (13.1-16.8) g/dL Hct 47.9 (39.0-49.0) % MCV 84.2 (84.0-98.0) fL MCH 26.0 L (28.2-33.3) pg MCHC 30.9 L (31.7-36.0) g/dL RDW 17.2 H (11.2-14.1) % Plt Count 296 (150-350) K/uL Neut % (Auto) 82.2 H (45.0-80.0) % Lymph % (Auto) 10.5 (10.0-50.0) % Daniels % (Auto) 6.5 (2.0-14.0) % Eos % (Auto) 0.5 (0.0-5.0) % Baso % (Auto) 0.3 (0.0-2.0) % Neut # (Auto) 9.73 H (1.40-7.00) K/uL Lymph # (Auto) 1.24 (0.50-3.50) K/uL Daniels # (Auto) 0.77 (0.00-1.00) K/uL Eos # (Auto) 0.06 (0.00-0.50) K/uL Baso # (Auto) 0.03 (0.00-0.20) K/uL PT 9.4 L (9.5-12.0) SEC INR 0.9 APTT 28.3 (24.5-32.8) SEC D-Dimer, Quantitative < 100 (0-400) ng/mL Sodium (136-145) mmol/L Potassium (3.5-5.1) mmol/L Chloride (98-107) mmol/L Carbon Dioxide (21.0-32.0) mmol/L BUN (7-18) mg/dL Creatinine (0.51-1.17) mg/dL Est Cr Clr Drug Dosing Estimated GFR (MDRD) mL/min Glucose (74-106) mg/dL POC Glucose (65-110) mg/dl Lactic Acid (0.4-2.0) mmol/L Calcium (8.5-10.1) mg/dL Magnesium (1.8-2.4) mg/dL Total Bilirubin (0.2-1.0) mg/dL AST (15-37) U/L ALT (12-78) U/L Alkaline Phosphatase (46-116) IU/L Creatine Kinase (26-308) U/L Creatine Kinase Index (0.0-2.5) % CK-MB (CK-2) (0.00-3.60) ng/mL Troponin I (0.000-0.056) ng/mL NT-Pro-B Natriuret Pep (0-125) pg/mL Total Protein (6.4-8.2) g/dL Albumin (3.4-5.0) g/dL TSH, Ultra Sensitive (0.358-3.740) mIU/mL 03/23/20 03/23/20 03/23/20 Range/Units 12:00 12:00 12:00 WBC (4.0-10.2) K/uL RBC (4.33-5.41) M/uL Hgb (13.1-16.8) g/dL Hct (39.0-49.0) % MCV (84.0-98.0) fL MCH (28.2-33.3) pg MCHC (31.7-36.0) g/dL RDW (11.2-14.1) % Plt Count (150-350) K/uL Neut % (Auto) (45.0-80.0) % Lymph % (Auto) (10.0-50.0) % Daniels % (Auto) (2.0-14.0) % Eos % (Auto) (0.0-5.0) % Baso % (Auto) (0.0-2.0) % Neut # (Auto) (1.40-7.00) K/uL Lymph # (Auto) (0.50-3.50) K/uL Daniels # (Auto) (0.00-1.00) K/uL Eos # (Auto) (0.00-0.50) K/uL Baso # (Auto) (0.00-0.20) K/uL PT (9.5-12.0) SEC INR APTT (24.5-32.8) SEC D-Dimer, Quantitative (0-400) ng/mL Sodium 136 (136-145) mmol/L Potassium 4.5 (3.5-5.1) mmol/L Chloride 97 L (98-107) mmol/L Carbon Dioxide 30.1 (21.0-32.0) mmol/L BUN 27 H (7-18) mg/dL Creatinine 1.11 (0.51-1.17) mg/dL Est Cr Clr Drug Dosing TNP Estimated GFR (MDRD) > 60 mL/min Glucose 194 H (74-106) mg/dL POC Glucose (65-110) mg/dl Lactic Acid 3.2 H (0.4-2.0) mmol/L Calcium 9.0 (8.5-10.1) mg/dL Magnesium 2.0 (1.8-2.4) mg/dL Total Bilirubin 0.4 (0.2-1.0) mg/dL AST 24 (15-37) U/L ALT 35 (12-78) U/L Alkaline Phosphatase 86 (46-116) IU/L Creatine Kinase 52 (26-308) U/L Creatine Kinase Index 3.8 H (0.0-2.5) % CK-MB (CK-2) 2.00 (0.00-3.60) ng/mL Troponin I 0.000 (0.000-0.056) ng/mL NT-Pro-B Natriuret Pep 94 (0-125) pg/mL Total Protein 7.4 (6.4-8.2) g/dL Albumin 3.3 L (3.4-5.0) g/dL TSH, Ultra Sensitive 0.831 (0.358-3.740) mIU/mL 03/23/20 03/23/20 03/23/20 Range/Units 16:55 19:50 21:38 WBC (4.0-10.2) K/uL RBC (4.33-5.41) M/uL Hgb (13.1-16.8) g/dL Hct (39.0-49.0) % MCV (84.0-98.0) fL MCH (28.2-33.3) pg MCHC (31.7-36.0) g/dL RDW (11.2-14.1) % Plt Count (150-350) K/uL Neut % (Auto) (45.0-80.0) % Lymph % (Auto) (10.0-50.0) % Daniels % (Auto) (2.0-14.0) % Eos % (Auto) (0.0-5.0) % Baso % (Auto) (0.0-2.0) % Neut # (Auto) (1.40-7.00) K/uL Lymph # (Auto) (0.50-3.50) K/uL Daniels # (Auto) (0.00-1.00) K/uL Eos # (Auto) (0.00-0.50) K/uL Baso # (Auto) (0.00-0.20) K/uL PT (9.5-12.0) SEC INR APTT (24.5-32.8) SEC D-Dimer, Quantitative (0-400) ng/mL Sodium (136-145) mmol/L Potassium (3.5-5.1) mmol/L Chloride (98-107) mmol/L Carbon Dioxide (21.0-32.0) mmol/L BUN (7-18) mg/dL Creatinine (0.51-1.17) mg/dL Est Cr Clr Drug Dosing Estimated GFR (MDRD) mL/min Glucose (74-106) mg/dL POC Glucose 81 111 H (65-110) mg/dl Lactic Acid (0.4-2.0) mmol/L Calcium (8.5-10.1) mg/dL Magnesium (1.8-2.4) mg/dL Total Bilirubin (0.2-1.0) mg/dL AST (15-37) U/L ALT (12-78) U/L Alkaline Phosphatase (46-116) IU/L Creatine Kinase (26-308) U/L Creatine Kinase Index (0.0-2.5) % CK-MB (CK-2) (0.00-3.60) ng/mL Troponin I 0.002 (0.000-0.056) ng/mL NT-Pro-B Natriuret Pep (0-125) pg/mL Total Protein (6.4-8.2) g/dL Albumin (3.4-5.0) g/dL TSH, Ultra Sensitive (0.358-3.740) mIU/mL 03/24/20 03/24/20 03/24/20 Range/Units 07:10 07:10 07:10 WBC 9.8 (4.0-10.2) K/uL RBC 5.29 (4.33-5.41) M/uL Hgb 13.8 (13.1-16.8) g/dL Hct 44.7 (39.0-49.0) % MCV 84.5 (84.0-98.0) fL MCH 26.1 L (28.2-33.3) pg MCHC 30.9 L (31.7-36.0) g/dL RDW 16.7 H (11.2-14.1) % Plt Count 280 (150-350) K/uL Neut % (Auto) 76.1 (45.0-80.0) % Lymph % (Auto) 12.4 (10.0-50.0) % Daniels % (Auto) 9.3 (2.0-14.0) % Eos % (Auto) 1.8 (0.0-5.0) % Baso % (Auto) 0.4 (0.0-2.0) % Neut # (Auto) 7.48 H (1.40-7.00) K/uL Lymph # (Auto) 1.22 (0.50-3.50) K/uL Daniels # (Auto) 0.91 (0.00-1.00) K/uL Eos # (Auto) 0.18 (0.00-0.50) K/uL Baso # (Auto) 0.04 (0.00-0.20) K/uL PT (9.5-12.0) SEC INR APTT (24.5-32.8) SEC D-Dimer, Quantitative (0-400) ng/mL Sodium 140 (136-145) mmol/L Potassium 4.0 (3.5-5.1) mmol/L Chloride 104 (98-107) mmol/L Carbon Dioxide 30.7 (21.0-32.0) mmol/L BUN 28 H (7-18) mg/dL Creatinine 1.08 (0.51-1.17) mg/dL Est Cr Clr Drug Dosing 59.81 Estimated GFR (MDRD) > 60 mL/min Glucose 141 H (74-106) mg/dL POC Glucose (65-110) mg/dl Lactic Acid 1.3 (0.4-2.0) mmol/L Calcium 8.4 L (8.5-10.1) mg/dL Magnesium (1.8-2.4) mg/dL Total Bilirubin 0.7 (0.2-1.0) mg/dL AST 23 (15-37) U/L ALT 30 (12-78) U/L Alkaline Phosphatase 76 (46-116) IU/L Creatine Kinase (26-308) U/L Creatine Kinase Index (0.0-2.5) % CK-MB (CK-2) (0.00-3.60) ng/mL Troponin I 0.000 (0.000-0.056) ng/mL NT-Pro-B Natriuret Pep (0-125) pg/mL Total Protein 6.4 (6.4-8.2) g/dL Albumin 2.8 L (3.4-5.0) g/dL TSH, Ultra Sensitive (0.358-3.740) mIU/mL 03/24/20 Range/Units 07:35 WBC (4.0-10.2) K/uL RBC (4.33-5.41) M/uL Hgb (13.1-16.8) g/dL Hct (39.0-49.0) % MCV (84.0-98.0) fL MCH (28.2-33.3) pg MCHC (31.7-36.0) g/dL RDW (11.2-14.1) % Plt Count (150-350) K/uL Neut % (Auto) (45.0-80.0) % Lymph % (Auto) (10.0-50.0) % Daniels % (Auto) (2.0-14.0) % Eos % (Auto) (0.0-5.0) % Baso % (Auto) (0.0-2.0) % Neut # (Auto) (1.40-7.00) K/uL Lymph # (Auto) (0.50-3.50) K/uL Daniels # (Auto) (0.00-1.00) K/uL Eos # (Auto) (0.00-0.50) K/uL Baso # (Auto) (0.00-0.20) K/uL PT (9.5-12.0) SEC INR APTT (24.5-32.8) SEC D-Dimer, Quantitative (0-400) ng/mL Sodium (136-145) mmol/L Potassium (3.5-5.1) mmol/L Chloride (98-107) mmol/L Carbon Dioxide (21.0-32.0) mmol/L BUN (7-18) mg/dL Creatinine (0.51-1.17) mg/dL Est Cr Clr Drug Dosing Estimated GFR (MDRD) mL/min Glucose (74-106) mg/dL POC Glucose 134 H (65-110) mg/dl Lactic Acid (0.4-2.0) mmol/L Calcium (8.5-10.1) mg/dL Magnesium (1.8-2.4) mg/dL Total Bilirubin (0.2-1.0) mg/dL AST (15-37) U/L ALT (12-78) U/L Alkaline Phosphatase (46-116) IU/L Creatine Kinase (26-308) U/L Creatine Kinase Index (0.0-2.5) % CK-MB (CK-2) (0.00-3.60) ng/mL Troponin I (0.000-0.056) ng/mL NT-Pro-B Natriuret Pep (0-125) pg/mL Total Protein (6.4-8.2) g/dL Albumin (3.4-5.0) g/dL TSH, Ultra Sensitive (0.358-3.740) mIU/mL Med Orders - Current: Current Medications Acetaminophen (Tylenol Extra Strength) 1,000 mg PO TID@,, [facility] Last Admin: 03/24/20 08:08 Dose: 1,000 mg Fluoxetine HCl (Prozac) 20 mg PO DAILY@699 [facility] Last Admin: 03/24/20 08:08 Dose: 20 mg Furosemide (Lasix) 60 mg PO DAILY@699 [facility] Last Admin: 03/24/20 08:05 Dose: 60 mg Gabapentin (Neurontin) 100 mg PO BEDTIME@2099 [facility] Last Admin: 03/23/20 21:41 Dose: 100 mg Gabapentin (Neurontin) 200 mg PO DAILY@699 [facility] Last Admin: 03/24/20 08:06 Dose: 200 mg Gabapentin (Neurontin) 400 mg PO DAILY@2099 [facility] Last Admin: 03/23/20 21:41 Dose: 400 mg Glipizide (Glucotrol) 20 mg PO BID@071630 [facility] Last Admin: 03/24/20 08:20 Dose: 20 mg Clindamycin/Sodium Chloride (600 mg/ Premix) 50 mls @ 150 mls/hr IV Q8H [facility] Last Admin: 03/24/20 05:34 Dose: 150 mls/hr Insulin Glargine (Lantus) 50 unit SUBCUT DAILY@0700 [facility] Last Admin: 03/24/20 08:15 Dose: 50 units Insulin Glargine (Lantus) 78 unit SUBCUT DAILY@2100 [facility] Last Admin: 03/23/20 22:01 Dose: Not Given Losartan Potassium (Cozaar) 12.5 mg PO DAILY@07 [facility] Last Admin: 03/24/20 08:09 Dose: 12.5 mg Melatonin (Melatonin) 9 mg PO DAILY@2099 [facility] Last Admin: 03/23/20 21:42 Dose: 9 mg Metformin HCl (Glucophage) 1,000 mg PO BID@0700,1630 [facility] Last Admin: 03/24/20 08:07 Dose: 1,000 mg Metoprolol Tartrate (Lopressor) 12.5 mg PO BID@ [facility] Last Admin: 03/24/20 08:11 Dose: 12.5 mg Budesonide/Formoterol 160mcg/4. 5mcg 2 inh INH BID@0700,1630 [facility] Last Admin: 03/24/20 08:05 Dose: 2 inh Insulin Aspart (Novolog) 6 units SUBCUT DAILY@163 [facility] Last Admin: 03/23/20 16:56 Dose: 6 units Insulin Aspart (Novolog) 8 units SUBCUT DAILY@1200 [facility] Jardiance 10mg (Tablets) 1 each PO DAILY@07 [facility] Last Admin: 03/24/20 08:19 Dose: 1 each Pantoprazole Sodium (Protonix Iv) 40 mg IVPUSH Q24H [facility] Last Admin: 03/23/20 16:45 Dose: 40 mg Polyethylene Glycol (Miralax) 17 gm PO DAILY PRN PRN Reason: Constipation Prednisone (Prednisone) 5 mg PO DAILY@07 [facility] Last Admin: 03/24/20 08:06 Dose: 5 mg Senna/Docusate Sodium (Senna Plus) 2 tab PO BID@0700,1630 [facility] Last Admin: 03/24/20 08:07 Dose: 2 tab Simvastatin (Zocor) 40 mg PO DAILY@2099 [facility] Last Admin: 03/23/20 21:41 Dose: 40 mg Sodium Chloride (Saline Flush) 10 ml FLUSH ASDIRECTED PRN PRN Reason: TKO Last Admin: 03/24/20 05:51 Dose: 10 ml Tiotropium Bandon (Spiriva Handihaler) 18 mcg INH DAILY@0700 [facility] Last Admin: 03/24/20 08:12 Dose: 18 mcg Discontinued Medications Albuterol/Ipratropium (Duoneb 3.0-0.5 Mg/3 Ml) 3 ml INH Q4H PRN PRN Reason: Dyspnea Albuterol/Ipratropium (Duoneb 3.0-0.5 Mg/3 Ml) 3 ml INH Q6H PRN PRN Reason: Dyspnea Albuterol/Ipratropium (Duoneb 3.0-0.5 Mg/3 Ml) 3 ml INH BID@0700,2100 [facility] Aspirin (Aspirin) Confirm Administered Dose 324 mg .ROUTE .STK-MED ONE Stop: 03/23/20 12:01 Last Admin: 03/23/20 12:16 Dose: Not Given Aspirin (Aspirin) 324 mg PO ONETIME ONE Stop: 03/23/20 11:59 Last Admin: 03/23/20 12:03 Dose: 324 mg Clindamycin/Sodium Chloride (600 mg/ Premix) 50 mls @ 150 mls/hr IV ONETIME ONE Stop: 03/23/20 13:47 Last Admin: 03/23/20 13:36 Dose: 150 mls/hr Sodium Chloride (Normal Saline) 1,000 mls @ 125 mls/hr IV .BOLUS ONE Stop: 03/23/20 21:28 Last Admin: 03/23/20 13:44 Dose: 125 mls/hr Ketorolac Tromethamine (Toradol) 15 mg IM ONETIME ONE Stop: 03/23/20 14:30 Last Admin: 03/23/20 16:20 Dose: Not Given Ketorolac Tromethamine (Toradol) 15 mg IVPUSH ONETIME ONE Stop: 03/23/20 16:20 Last Admin: 03/23/20 16:42 Dose: 15 mg Nitroglycerin (Nitrostat) Confirm Administered Dose 0.4 mg .ROUTE .STK-MED ONE Stop: 03/23/20 12:01 Last Admin: 03/23/20 12:16 Dose: Not Given Nitroglycerin (Nitrostat) 0.4 mg SL ONETIME ONE Stop: 03/23/20 11:59 Last Admin: 03/23/20 12:16 Dose: 0.4 mg Non-Formulary Medication (Mag Hydrox/Aluminum Hyd/Simeth [Mylanta Maximum Strength Liq]) 20 ml PO QID PRN PRN Reason: Indigestion Non-Formulary Medication (Propylene Glycol/Peg 400 [Systane 0.3-0.4% Eye Drops] ) 1 drop EYEBOTH TID PRN PRN Reason: Dry Eyes Triamcinolone Acetonide (Triamcinolone Acetonide 0.025%) gm TOP BID PRN PRN Reason: Rash - Exam Quality Assessment: Reports: Supplemental Oxygen General: Reports: Alert, Oriented, Cooperative, No Acute Distress HEENT: Reports: Pupils Equal, Pupils Reactive, EOMI, Mucous Membr. Moist/[place] Neck: Reports: Supple Lungs: Reports: Normal Respiratory Effort, Wheezing (mild, bilateral). Denies: Crackles, Rales, Rhonchi, Rub, Stridor Cardiovascular: Reports: Regular Rate, Regular Rhythm GI/Abdominal Exam: Normal Bowel Sounds, Soft, Non-Tender (Male) Exam: Deferred Rectal (Males) Exam: Deferred Back Exam: Denies: CVA Tenderness (L), CVA Tenderness (R), Muscle Spasm Extremities: Non-Tender, Normal Capillary Refill Skin: Reports: Warm, Dry Neurological: Reports: No New Focal Deficit Psy/Mental Status: Reports: Alert, Normal Affect, Normal Mood EKG INTERPRETATION EKG Date: 03/24/20 Time: 07:24 Rhythm: NSR Rate (Beats/Min): 84 [place]: Normal P-Wave: Present QRS: Other (low voltage) ST-T: Normal QT: Normal Comparison: No Change
[2020-03-24] MEDS ORDERED: INSULIN ASPART SUBCUT SCH (12:00)
== END 2020-03-24 11:00 | disposition home or self-care (01) ==
LOC: LL.ED 11:42 → LL.MS 13:46 → UNDOADMOB 13:46 → LL.MS 14:17
PROVIDERS: ADMIT Emergency Medicine; ATTEND Emergency Medicine
DX: R07.89 Other chest pain (principal); J44.9 Chronic obstructive pulmonary disease, unspecified; E11.22 Type 2 diabetes mellitus with diabetic chronic kidney disease; I13.0 Hypertensive heart and chronic kidney disease with heart failure and stage 1 through stage 4 chronic kidney disease, or unspecified chronic kidney disease; N18.9 Chronic kidney disease, unspecified; I50.9 Heart failure, unspecified; E11.69 Type 2 diabetes mellitus with other specified complication; E66.9 Obesity, unspecified; R79.89 Other specified abnormal findings of blood chemistry; E78.5 Hyperlipidemia, unspecified; E11.51 Type 2 diabetes mellitus with diabetic peripheral angiopathy without gangrene; R19.5 Other fecal abnormalities; M54.9 Dorsalgia, unspecified; G89.29 Other chronic pain; R51 Headache; F32.9 Major depressive disorder, single episode, unspecified; D75.1 Secondary polycythemia; E78.00 Pure hypercholesterolemia, unspecified; Z79.4 Long term (current) use of insulin; Z79.899 Other long term (current) drug therapy; Z68.38 Body mass index [BMI] 38.0-38.9, adult; Z99.81 Dependence on supplemental oxygen
CPT/HCPCS: 36415; 71046; 80053; 82550; 82553; 82962; 83605; 83735; 83880; 84443; 84484; 85025; 85379; 85610; 85730; 93005; 94640; 96361; 96365; 96366; 96375; 96376; 99285-25; A9270-GY; C9113; G0378; J1885; J3490; J7030; J7512; U0002

== ENCOUNTER 2021-08-24 09:15 | Day surgery (SDC) | payer MEDICARE, OTHER ==
[~2021-08-24 09:15] MED LIST: Lactated Ringers 1,000 ML IV SCH; Midazolam 1 MG/ML 2 ML SDV ONE; Propofol 200 MG/20 ML SDV ONE; Sodium Chloride 0.9% 10 ML Syringe FLUSH PRN
--- NOTE | 2021-08-24 10:35 | PCM.HPR ---
H & P Addendum review - H & P Addendum Review Date of Original H & P: 08/15/21 Date Reviewed: 08/24/21 Time Reviewed: 10:35 Patient was Examined: No Changes
[2021-08-24] MEDS ORDERED: Midazolam 1 MG/ML 2 ML SDV ONE (10:38)
[2021-08-24] MEDS ORDERED: Propofol 200 MG/20 ML SDV ONE (10:38)
--- NOTE | 2021-08-24 11:10 | PCM.OPNOTE ---
- General Post-Op/Procedure Note Date of Surgery/Procedure: 08/24/21 Operative Procedure(s): Colonoscopy Findings: 2 polyps,sig tics Pre Op Diagnosis: Hx Polyps Post-Op Diagnosis: Same Anesthesia Technique: MAC Primary Surgeon: Cory Cisneros Anesthesia Provider: Tresa Lopez Complications: None Condition: Good
--- NOTE | 2021-08-25 09:21 | OR ---
Date of Procedure: 08/24/2021 PREOPERATIVE DIAGNOSIS: History of colon polyps. POSTOPERATIVE DIAGNOSES: 1. Colon polyps. 2. Sigmoid diverticulosis. PROCEDURE: Colonoscopy with polypectomy. ANESTHESIA: IV sedation. DESCRIPTION OF PROCEDURE: The patient was brought to the procedure room where he was placed on his left side and IV sedation administered. Digital rectal exam was performed, which was normal. Colonoscope was inserted and advanced to the level of the cecum without difficulty. Cecal position was confirmed by identifying the appendiceal lumen and ileocecal valve. Prep was fair to poor with solid stool from diverticulosis remaining on the left side and some liquid thick stool remaining on the right side. Much of this was irrigated and suctioned. In the cecum, he has a 5-mm sessile polyp removed with a hot biopsy forceps and sent for pathology review. The ascending colon was normal. In the distal transverse colon, there was an 8-mm semipedunculated polyp removed with a cautery snare and retrieved in the polyp trap and also sent for pathology review. The descending colon was normal. Sigmoid colon had multiple large diverticula throughout. Rectum was normal and retroflexion was normal. Air was removed and the scope withdrawn. The patient tolerated the procedure well and returned to recovery in stable condition. No further colonoscopies are necessary due to patient's age and underlying health conditions. SUMANTH AMADOR MD /[id number]
== END 2021-08-24 12:05 | disposition home or self-care (01) ==
LOC: LL.SDS 09:15
PROVIDERS: ATTEND Surgery
DX: Z12.11 Encounter for screening for malignant neoplasm of colon (principal); D12.0 Benign neoplasm of cecum; D12.3 Benign neoplasm of transverse colon; K57.30 Diverticulosis of large intestine without perforation or abscess without bleeding; I13.0 Hypertensive heart and chronic kidney disease with heart failure and stage 1 through stage 4 chronic kidney disease, or unspecified chronic kidney disease; I50.9 Heart failure, unspecified; N18.9 Chronic kidney disease, unspecified; J44.9 Chronic obstructive pulmonary disease, unspecified; E78.5 Hyperlipidemia, unspecified; E66.01 Morbid (severe) obesity due to excess calories; E11.22 Type 2 diabetes mellitus with diabetic chronic kidney disease; E11.51 Type 2 diabetes mellitus with diabetic peripheral angiopathy without gangrene; Z79.4 Long term (current) use of insulin; Z79.899 Other long term (current) drug therapy; Z87.891 Personal history of nicotine dependence
CPT/HCPCS: 00812; 45384; 45385; 82947; J2250; J2704; J7120

== ENCOUNTER 2021-08-25 16:47 | Emergency (ER) | payer OTHER ==
[2021-08-25] MEDS ORDERED: Sodium Chloride 0.9% 1,000 ML IV ONE (17:15)
[2021-08-25] MEDS ORDERED: Sodium Chloride 0.9% 10 ML Syringe FLUSH PRN (17:15)
--- NOTE | 2021-08-25 19:20 | EDM.PDOC ---
ED HPI GENERAL MEDICAL PROBLEM - General Chief Complaint: General Stated Complaint: fall/weakness Time Seen by Provider: 08/25/21 17:13 Source of Information: Reports: Patient History Limitations: Reports: No Limitations - History of Present Illness INITIAL COMMENTS - FREE TEXT/NARRATIVE: Patient sent to ER from [facility] due to weakness. Fall. No LOC. Resides on [facility] side. Patient says his only complaint is that legs are weak. Has felt like legs were weak for several days. Did have colonoscopy yesterday and has undergone the prep over the last few days prior to the study. No other changes reported. Denies any injuries from falls. - Related Data Allergies Allergy/AdvReac Type Severity Reaction Status Date / Time No Known Allergies Allergy Verified 08/25/21 16:48 Home Meds: Home Meds Acetaminophen [Tylenol Extra Strength] 1,000 mg PO TID@07,12,21 09/04/18 [History] Albuterol Sulfate [Proair Respiclick] 2 inh INH Q6H PRN 09/04/18 [History] Budesonide/Formoterol Fumarate [Symbicort 160-4.5 Mcg Inhaler] 2 inh INH BID@0700,1630 09/04/18 [History] Empagliflozin [Jardiance] 10 mg PO DAILY@0700 09/04/18 [History] FLUoxetine HCl [Prozac] 20 mg PO DAILY@0700 09/04/18 [History] Furosemide [Lasix] 60 mg PO DAILY@0700 09/04/18 [History] Gabapentin [Neurontin] 200 mg PO DAILY@0700 09/04/18 [History] Gabapentin [Neurontin] 400 mg PO DAILY@2100 09/04/18 [History] Insulin Aspart [NovoLOG] 6 units SUBCUT DAILY@1630 09/04/18 [History] Insulin Aspart [NovoLOG] 8 units SUBCUT DAILY@1200 09/04/18 [History] Insulin Glarg,Human.Rec.Analog [Lantus] 50 units SUBCUT DAILY@0600 09/04/18 [History] Insulin Glarg,Human.Rec.Analog [Lantus] 78 units SUBCUT DAILY@2100 09/04/18 [History] Ipratropium/Albuterol Sulfate [Iprat-Albut 0.5-3(2.5) MG/3 ML] 1 ampule INH Q6H PRN 10/25/18 [History] Ipratropium/Albuterol Sulfate [Iprat-Albut 0.5-3(2.5) MG/3 ML] 1 vial INH BID@09/04/18 [History] Ipratropium/Albuterol Sulfate [Iprat-Albut 0.5-3(2.5) mg/3 ml] 1 ampule INH Q4H PRN 09/04/18 [History] Losartan [Cozaar] 12.5 mg PO DAILY@69909/04/18 [History] Melatonin 9 mg PO DAILY@209909/04/18 [History] Metoprolol Tartrate 12.5 mg PO BID@,209909/04/18 [History] Omeprazole 20 mg PO BID@,209909/04/18 [History] Propylene Glycol/Peg 400 [Systane 0.3-0.4% Eye Drops] 1 drop EYEBOTH TID PRN 09/04/18 [History] Sennosides/Docusate Sodium [Senna-Docusate Sodium Tablet] 2 tab PO BID@0700,162909/04/18 [History] Simvastatin [Zocor] 40 mg PO DAILY@209909/04/18 [History] Tiotropium [Spiriva HandiHaler] 2 inh INH DAILY@69909/04/18 [History] Triamcinolone Acetonide [Triamcinolone Acetonide 0.025%] 1 dose TOP BID PRN 09/04/18 [History] glipiZIDE [Glucotrol] 20 mg PO BID@09/04/18 [History] metFORMIN HCl [Metformin HCl] 1,000 mg PO BID@07,162909/04/18 [History] polyethylene glycoL 3350 [MiraLAX] 17 gm PO DAILY PRN 09/04/18 [History] predniSONE [Prednisone] 5 mg PO DAILY@0709/04/18 [History] Gabapentin [Neurontin] 100 mg PO BEDTIME 03/23/20 [History] Mag Hydrox/Aluminum Hyd/Simeth [Mylanta Maximum Strength Liq] 20 ml PO QID PRN 03/23/20 [History] Doxycycline [Vibramycin] 100 mg PO BID #14 cap 03/24/20 [Rx] Past Medical History HEENT History: Reports: Impaired Vision Cardiovascular History: Reports: Heart Failure, High Cholesterol, Hypertension, PVD Respiratory History: Reports: COPD, Other (See Below) Other Respiratory History: Oxygen dependant COPD Gastrointestinal History: Reports: Other (See Below) Other Gastrointestinal History: Heme positive stools x 3 Genitourinary History: Reports: Other (See Below) Other Genitourinary History: Chronic Kidney Disease Musculoskeletal History: Reports: Back Pain, Chronic Neurological History: Reports: Headaches, Chronic Psychiatric History: Reports: Depression Endocrine/Metabolic History: Reports: Diabetes, Type II, Obesity/BMI 30+ Hematologic History: Reports: Polycythemia - Past Surgical History GI Surgical History: Reports: Colonoscopy Social & Family History - Caffeine Use Caffeine Use: Reports: Coffee, Soda ED ROS GENERAL - Review of Systems Review Of Systems: See Below Constitutional: Reports: Weakness. Denies: Fever, Chills, Malaise, Night Sweats, Diaphoresis, Decreased Appetite HEENT: Reports: No Symptoms Respiratory: Reports: No Symptoms Cardiovascular: Reports: No Symptoms GI/Abdominal: Reports: No Symptoms : Reports: No Symptoms Musculoskeletal: Reports: Other (no acute changes from baseline) Skin: Reports: Other (abrasions/bruising lower legs from falls) Neurological: Reports: No Symptoms Psychiatric: Reports: No Symptoms Hematologic/Lymphatic: Reports: No Symptoms ED EXAM, GENERAL - Physical Exam Exam: See Below Exam Limited By: No Limitations General Appearance: Alert, WD/WN, No Apparent Distress, Other (sitting in wheelchair) Eye Exam: Bilateral Eye: EOMI, PERRL Ears: Normal External Exam, Normal Canal Nose: No: Nasal Deformity, Nasal Swelling, Nasal Drainage Throat/Mouth: Normal Lips, Normal Voice, No Airway Compromise Head: Atraumatic, Normocephalic Neck: Normal Inspection, Supple, Non-Tender, Full Range of Motion Respiratory/Chest: No Respiratory Distress, Lungs Clear, Normal Breath Sounds, No Accessory Muscle Use Cardiovascular: Regular Rate, Rhythm, No Murmur GI/Abdominal: Normal Bowel Sounds, Soft, Non-Tender, No Distention (Male) Exam: Deferred Rectal (Males) Exam: Deferred Back Exam: No: CVA Tenderness (L), CVA Tenderness (R), Muscle Spasm, Paraspinal Tenderness, Vertebral Tenderness Extremities: Other (no focal tenderness. Has some bruising and abrasions lower legs. ) Neurological: Alert, Oriented, Normal Cognition, No Motor/Sensory Deficits Psychiatric: Normal Affect, Normal Mood Skin Exam: Warm, Dry, Intact, Normal Color Course - Vital Signs Last Recorded V/S: Last Vital Signs Temp 36.8 C 08/25/21 16:50 Pulse 84 08/25/21 16:50 Resp 22 H 08/25/21 16:50 BP 118/67 08/25/21 16:50 Pulse Ox 97 08/25/21 16:50 - Orders/Labs/Meds Orders: Active Orders 24 hr Category Date Time Status Chest 1V Frontal [CR] Stat Exams 08/25/21 17:14 Taken Sodium Chloride 0.9% [Saline Flush] Med 08/25/21 17:15 Active 10 ml FLUSH ASDIRECTED PRN Saline Lock Insert [OM.PC] Routine Oth 08/25/21 17:15 Ordered Medication Orders Sodium Chloride (Sodium Chloride 0.9% 10 Ml Syringe) 10 ml FLUSH ASDIRECTED PRN PRN Reason: Keep Vein Open Labs: Laboratory Tests 08/25/21 08/25/21 Range/Units 18:31 18:31 Lactic Acid 3.0 H (0.4-2.0) mmol/L NT-Pro-B Natriuret Pep 200 H (0-125) pg/mL Meds: Medications Generic Name Dose Route Start Last Admin Trade Name Freq PRN Reason Stop Dose Admin Sodium Chloride 10 ml 08/25/21 17:15 Sodium Chloride 0.9% 10 Ml Syringe FLUSH ASDIRECTED PRN Keep Vein Open Discontinued Medications Generic Name Dose Route Start Last Admin Trade Name Freq PRN Reason Stop Dose Admin Sodium Chloride 1,000 mls @ 500 mls/hr 08/25/21 17:15 08/25/21 18:06 Normal Saline IV 08/25/21 19:14 500 mls/hr .BOLUS ONE Administration - Re-Assessments/Exams Free Text/Narrative Re-Assessment/Exam: 08/25/21 19:18 Patient had labs performed at [facility]. UA unremarkable. WBC 13.4 Hgb 12.5 Cr 1.43 CRP 6 No fevers. No obvious signs of acute infection. Chest xray portable, no obvious new infiltrates. Suspect patient's weakness could very likely be secondary to this week's colonoscopy prep/decreased PO intake. Also recent anesthesia (yesterday) Plan at this time is to give 1 liter of IV fluid and let patient return to [facility]. They are to continue to observe for changes and see if symptoms improve after IV fluids and patient's return to normal PO intake. Departure - Departure Time of Disposition: 19:46 Disposition: Home, Self-Care 01 Condition: Good Clinical Impression: Weakness, S/P colonoscopy - Discharge Information *PRESCRIPTION DRUG MONITORING PROGRAM REVIEWED*: Not Applicable *COPY OF PRESCRIPTION DRUG MONITORING REPORT IN PATIENT LINDSEY: Not Applicable Referrals: Kristen Sierra PA [Primary Care Provider] - Forms: ED Department Discharge Additional Instructions: Watch closely over the next 24-48 hours and see if symptoms improve after IV fluids and patient returning to usual eating/drinking. Give time to recover from the anesthesia. Observe for any new changes such as fever or anything else suggestive of new illness and follow up accordingly. Sepsis Event Note (ED) - Evaluation Sepsis Screening Result: No Definite Risk - Focused Exam Vital Signs: Vital Signs Temp Pulse Resp BP Pulse Ox 08/25/21 16:50 36.8 C 84 22 H 118/67 97 - My Orders Last 24 Hours: My Active Orders 08/25/21 17:14 Chest 1V Frontal [CR] Stat 08/25/21 17:15 Sodium Chloride 0.9% [Saline Flush] 10 ml FLUSH ASDIRECTED PRN Saline Lock Insert [OM.PC] Routine - Assessment/Plan Last 24 Hours: My Active Orders 08/25/21 17:14 Chest 1V Frontal [CR] Stat 08/25/21 17:15 Sodium Chloride 0.9% [Saline Flush] 10 ml FLUSH ASDIRECTED PRN Saline Lock Insert [OM.PC] Routine
== END 2021-08-25 20:18 | disposition home or self-care (01) ==
LOC: LL.ED 16:47
DX: R53.1 Weakness (principal); I13.0 Hypertensive heart and chronic kidney disease with heart failure and stage 1 through stage 4 chronic kidney disease, or unspecified chronic kidney disease; N18.9 Chronic kidney disease, unspecified; I50.9 Heart failure, unspecified; E78.00 Pure hypercholesterolemia, unspecified; J44.9 Chronic obstructive pulmonary disease, unspecified; E11.9 Type 2 diabetes mellitus without complications; E66.9 Obesity, unspecified; Z68.30 Body mass index [BMI] 30.0-30.9, adult; Z79.4 Long term (current) use of insulin; Z79.899 Other long term (current) drug therapy; Z93.3 Colostomy status
CPT/HCPCS: 36415; 71045; 83605; 83880; 99285; J7030; 99283

== ENCOUNTER 2021-09-22 17:27 | Emergency (ER) | payer MEDICARE, OTHER ==
[2021-09-22] MEDS ORDERED: Sodium Chloride 0.9% 10 ML Syringe FLUSH PRN (18:04)
[2021-09-22] MEDS ORDERED: Sodium Chloride 0.9% 1,000 ML IV SCH ×3 (18:15→20:45)
--- NOTE | 2021-09-22 18:23 | EDM.PDOC ---
ED HPI GENERAL MEDICAL PROBLEM - General Chief Complaint: General Stated Complaint: fall, cough Time Seen by Provider: 09/22/21 18:10 Source of Information: Reports: Patient, EMS, EMS Notes Reviewed, Snf Records, Old Records History Limitations: Reports: Altered Mental Status, Other (poor historian) - History of Present Illness INITIAL COMMENTS - FREE TEXT/NARRATIVE: Patient resides at the 's home. At baseline he is reported alert and and orientated and a assist of two. Today he was found on the floor after a fall at 15:00. Staff did assist him to get up , but they noted that he was not himself and not interacting like he normally does so they decided to send him in. he was unable to stand to assist for transfer so EMS was called. He is diabetic, and has been frequently falling so moved to the skilled side from the basic side recently. No new injuries were found by the staff, but they noted a cough and slight tachycardia. did get his second covid immunization today. At arrival, patient is orientated to self only, not able to help with transfer, but moving all extremities. No new signs of trauma, but old abrasions to knees Onset: Today Onset Time: 15:00 Duration: Getting Worse Associated Symptoms: Reports: Confusion, Cough - Related Data Allergies Allergy/AdvReac Type Severity Reaction Status Date / Time No Known Allergies Allergy Verified 09/22/21 17:31 Home Meds: Home Meds Acetaminophen [Tylenol Extra Strength] 1,000 mg PO TID@,,09/04/18 [History] Albuterol Sulfate [Proair Respiclick] 2 inh INH Q6H PRN 09/04/18 [History] Budesonide/Formoterol Fumarate [Symbicort 160-4.5 Mcg Inhaler] 2 inh INH BID@0700,1630 09/04/18 [History] Empagliflozin [Jardiance] 10 mg PO DAILY@0700 09/04/18 [History] FLUoxetine HCl [Prozac] 20 mg PO DAILY@0700 09/04/18 [History] Furosemide [Lasix] 60 mg PO DAILY@0700 09/04/18 [History] Gabapentin [Neurontin] 200 mg PO DAILY@0700 09/04/18 [History] Gabapentin [Neurontin] 400 mg PO DAILY@2100 09/04/18 [History] Insulin Aspart [NovoLOG] 6 units SUBCUT DAILY@1630 09/04/18 [History] Insulin Aspart [NovoLOG] 8 units SUBCUT DAILY@1200 09/04/18 [History] Insulin Glarg,Human.Rec.Analog [Lantus] 50 units SUBCUT DAILY@0600 09/04/18 [History] Insulin Glarg,Human.Rec.Analog [Lantus] 78 units SUBCUT DAILY@209909/04/18 [History] Ipratropium/Albuterol Sulfate [Iprat-Albut 0.5-3(2.5) MG/3 ML] 1 ampule INH Q6H PRN 09/04/18 [History] Ipratropium/Albuterol Sulfate [Iprat-Albut 0.5-3(2.5) MG/3 ML] 1 vial INH BID@06,09/04/18 [History] Ipratropium/Albuterol Sulfate [Iprat-Albut 0.5-3(2.5) mg/3 ml] 1 ampule INH Q4H PRN 09/04/18 [History] Losartan [Cozaar] 12.5 mg PO DAILY@0709/04/18 [History] Melatonin 9 mg PO DAILY@209909/04/18 [History] Metoprolol Tartrate 12.5 mg PO BID@09/04/18 [History] Omeprazole 20 mg PO BID@,209909/04/18 [History] Propylene Glycol/Peg 400 [Systane 0.3-0.4% Eye Drops] 1 drop EYEBOTH TID PRN 09/04/18 [History] Sennosides/Docusate Sodium [Senna-Docusate Sodium Tablet] 2 tab PO BID@0700,16309/04/18 [History] Simvastatin [Zocor] 40 mg PO DAILY@209909/04/18 [History] Tiotropium [Spiriva HandiHaler] 2 inh INH DAILY@0700 09/04/18 [History] Triamcinolone Acetonide [Triamcinolone Acetonide 0.025%] 1 dose TOP BID PRN 09/04/18 [History] glipiZIDE [Glucotrol] 20 mg PO BID@07,16309/04/18 [History] metFORMIN HCl [Metformin HCl] 1,000 mg PO BID@0700,1630 09/04/18 [History] polyethylene glycoL 3350 [MiraLAX] 17 gm PO DAILY PRN 09/04/18 [History] predniSONE [Prednisone] 5 mg PO DAILY@0700 09/04/18 [History] Gabapentin [Neurontin] 100 mg PO BEDTIME 03/23/20 [History] Mag Hydrox/Aluminum Hyd/Simeth [Mylanta Maximum Strength Liq] 20 ml PO QID PRN 03/23/20 [History] Doxycycline [Vibramycin] 100 mg PO BID #14 cap 03/24/20 [Rx] Past Medical History HEENT History: Reports: Impaired Vision Cardiovascular History: Reports: Heart Failure, High Cholesterol, Hypertension, PVD, Other (See Below) (tachycardia) Respiratory History: Reports: COPD, Other (See Below) Other Respiratory History: Oxygen dependant COPD Gastrointestinal History: Reports: Other (See Below) Other Gastrointestinal History: Heme positive stools x 3 Genitourinary History: Reports: Other (See Below) Other Genitourinary History: Chronic Kidney Disease Musculoskeletal History: Reports: Back Pain, Chronic Neurological History: Reports: Headaches, Chronic Psychiatric History: Reports: Depression Endocrine/Metabolic History: Reports: Diabetes, Type II, Obesity/BMI 30+ Hematologic History: Reports: Polycythemia - Past Surgical History GI Surgical History: Reports: Colonoscopy Social & Family History - Tobacco Use Tobacco Use Status *Q: Former Tobacco User - Caffeine Use Caffeine Use: Reports: Coffee - Alcohol Use Alcohol Use History: No Alcohol Use in Last Twelve Months: No - Recreational Drug Use Recreational Drug Use: No Drug Use in Last 12 Months: No - Living Situation & Occupation Living situation: Reports: Extended Care Facility ED ROS GENERAL - Review of Systems Review Of Systems: Unable To Obtain Reason Not Obtained: patient is alert but does not answer questions denies pain only ED EXAM, GENERAL - Physical Exam Exam: See Below General Appearance: Alert, No Apparent Distress Eye Exam: Bilateral Eye: Abnormal Pupil (no symmetric but no gross abnormalities, unsure of baseline), Normal Inspection Ears: Normal External Exam, Normal Canal, Hearing Grossly Normal, Normal TMs Nose: Normal Inspection, Normal Mucosa, No Blood Throat/Mouth: Normal Inspection, Normal Lips, Normal Gums, Normal Oropharynx, Normal Voice, No Airway Compromise Head: Atraumatic, Normocephalic Neck: Normal Inspection, Supple, Non-Tender Respiratory/Chest: No Respiratory Distress, Normal Breath Sounds, Chest Non- Tender, Decreased Breath Sounds (bases). No: Wheezing Cardiovascular: No Edema, No JVD, No Murmur, Tachycardia GI/Abdominal: Soft, Non-Tender, No Mass, Other (obese) Extremities: Other (multiple bruises and abrasions to the knees without signs of infection. no joint effusion. moves upper and lower extermities without problems with the exception of difficulty overhead witht he right shoulder. ) Neurological: Alert, Other (answers correctly to his name and . Knows [place]. Thinks he is in [place]. Will not participate in checking cranial nerves. Moves upper and lower extermities on command. no drift. ) Psychiatric: Flat Affect Skin Exam: Other (healing abrasions on knees, no other skin lesions. extensive skin exam noted. dry skin) #1 Interpretation EKG Date: 09/22/21 Time: 18:13 Rhythm: NSR Rate (Beats/Min): 98 [place]: Normal P-Wave: Present ST-T: Other (non specific changes, NO STEMI) QT: Prolonged Course - Vital Signs Last Recorded V/S: Last Vital Signs Temp 35.8 C L 09/22/21 17:31 Pulse 95 09/22/21 17:31 Resp 24 H 09/22/21 17:31 BP 137/50 L 09/22/21 17:31 Pulse Ox 99 09/22/21 17:31 - Orders/Labs/Meds Orders: Active Orders 24 hr Category Date Time Status EKG Documentation Completion [RC] ASDIRECTED Care 09/22/21 18:04 Active Peripheral IV Care [RC] . DIRECTED Care 09/22/21 18:04 Active Abdomen Pelvis w Cont [CT] Stat Exams 09/22/21 19:38 Taken Chest 1V Frontal [CR] Stat Exams 09/22/21 18:04 Taken Head wo Cont [CT] Stat Exams 09/22/21 18:04 Taken UA RFX SARAN AND CULT IF INDIC [URIN] Stat Lab 09/22/21 18:04 Ordered Sodium Chloride 0.9% [Normal Saline] 1,000 ml Med 09/22/21 18:15 Active IV ASDIRECTED Sodium Chloride 0.9% [Normal Saline] 1,000 ml Med 09/22/21 19:45 Active IV ASDIRECTED Sodium Chloride 0.9% [Normal Saline] 1,000 ml Med 09/22/21 20:45 Active IV ASDIRECTED Sodium Chloride 0.9% [Saline Flush] Med 09/22/21 18:04 Active 10 ml FLUSH ASDIRECTED PRN Peripheral IV Insertion Adult [OM.PC] Routine Oth 09/22/21 18:04 Ordered EKG 12 Lead [EK] Stat Ther 09/22/21 18:04 Ordered Medication Orders Sodium Chloride (Normal Saline) 1,000 mls @ 999 mls/hr IV ASDIRECTED LAURA Last Admin: 09/22/21 18:29 Dose: 999 mls/hr Documented by: JUANIS Sodium Chloride (Normal Saline) 1,000 mls @ 999 mls/hr IV ASDIRECTED LAURA Last Admin: 09/22/21 19:30 Dose: 999 mls/hr Documented by: ROSIELTIF Sodium Chloride (Normal Saline) 1,000 mls @ 999 mls/hr IV ASDIRECTED LAURA Last Admin: 09/22/21 21:06 Dose: 999 mls/hr Documented by: SHAILAIF Sodium Chloride (Sodium Chloride 0.9% 10 Ml Syringe) 10 ml FLUSH ASDIRECTED PRN PRN Reason: Keep Vein Open Last Admin: 09/22/21 18:31 Dose: 10 ml Documented by: JUANIS Labs: Laboratory Tests 09/22/21 09/22/21 09/22/21 Range/Units 18:17 18:17 18:18 WBC 16.6 H (4.0-10.2) K/uL RBC 5.57 H (4.33-5.41) M/uL Hgb 12.4 L (13.1-16.8) g/dL Hct 41.8 (39.0-49.0) % MCV 75.0 L D (84.0-98.0) fL MCH 22.3 L (28.2-33.3) pg MCHC 29.7 L (31.7-36.0) g/dL RDW 17.9 H (11.2-14.1) % Plt Count 494 H (150-350) K/uL Neut % (Auto) 85.4 H (45.0-80.0) % Lymph % (Auto) 6.7 L (10.0-50.0) % [place] % (Auto) 7.4 (2.0-14.0) % Eos % (Auto) 0.3 (0.0-5.0) % Baso % (Auto) 0.2 (0.0-2.0) % Neut # (Auto) 14.15 H (1.40-7.00) K/uL Lymph # (Auto) 1.11 (0.50-3.50) K/uL [place] # (Auto) 1.23 H (0.00-1.00) K/uL Eos # (Auto) 0.05 (0.00-0.50) K/uL Baso # (Auto) 0.04 (0.00-0.20) K/uL Sodium (136-145) mmol/L Potassium (3.5-5.1) mmol/L Chloride (98-107) mmol/L Carbon Dioxide (21.0-32.0) mmol/L Anion Gap (7-15) meq/L BUN (7-18) mg/dL Creatinine (0.51-1.17) mg/dL Est Cr Clr Drug Dosing mL/min Estimated GFR (MDRD) mL/min Glucose (70-99) mg/dL Lactic Acid (0.4-2.0) mmol/L Calcium (8.5-10.1) mg/dL Total Bilirubin (0.2-1.0) mg/dL AST (15-37) U/L ALT (12-78) U/L Alkaline Phosphatase (46-116) IU/L Ammonia 15 (11-32) umol/L Creatine Kinase 328 H (26-308) U/L Troponin I High Sens (<=76) ng/L C-Reactive Protein (<=0.9) mg/dL Total Protein (6.4-8.2) g/dL Albumin (3.4-5.0) g/dL 09/22/21 09/22/21 Range/Units 18:18 18:18 WBC (4.0-10.2) K/uL RBC (4.33-5.41) M/uL Hgb (13.1-16.8) g/dL Hct (39.0-49.0) % MCV (84.0-98.0) fL MCH (28.2-33.3) pg MCHC (31.7-36.0) g/dL RDW (11.2-14.1) % Plt Count (150-350) K/uL Neut % (Auto) (45.0-80.0) % Lymph % (Auto) (10.0-50.0) % [place] % (Auto) (2.0-14.0) % Eos % (Auto) (0.0-5.0) % Baso % (Auto) (0.0-2.0) % Neut # (Auto) (1.40-7.00) K/uL Lymph # (Auto) (0.50-3.50) K/uL [place] # (Auto) (0.00-1.00) K/uL Eos # (Auto) (0.00-0.50) K/uL Baso # (Auto) (0.00-0.20) K/uL Sodium 147 H (136-145) mmol/L Potassium 3.7 (3.5-5.1) mmol/L Chloride 109 H (98-107) mmol/L Carbon Dioxide 23.4 (21.0-32.0) mmol/L Anion Gap 18.3 H (7-15) meq/L BUN 37 H (7-18) mg/dL Creatinine 1.52 H (0.51-1.17) mg/dL Est Cr Clr Drug Dosing 39.86 mL/min Estimated GFR (MDRD) 45 mL/min Glucose 114 H (70-99) mg/dL Lactic Acid 3.0 H (0.4-2.0) mmol/L Calcium 9.3 (8.5-10.1) mg/dL Total Bilirubin 0.3 (0.2-1.0) mg/dL AST 15 (15-37) U/L ALT 20 (12-78) U/L Alkaline Phosphatase 115 (46-116) IU/L Ammonia (11-32) umol/L Creatine Kinase (26-308) U/L Troponin I High Sens 5 (<=76) ng/L C-Reactive Protein 2.9 H (<=0.9) mg/dL Total Protein 7.6 (6.4-8.2) g/dL Albumin 3.4 (3.4-5.0) g/dL Meds: Medications Generic Name Dose Route Start Last Admin Trade Name Freq PRN Reason Stop Dose Admin Sodium Chloride 1,000 mls @ 999 mls/hr 09/22/21 18:15 09/22/21 18:29 Normal Saline IV 999 mls/hr ASDIRECTED LAURA Administration Sodium Chloride 1,000 mls @ 999 mls/hr 09/22/21 19:45 09/22/21 19:30 Normal Saline IV 999 mls/hr ASDIRECTED LAURA Administration Sodium Chloride 1,000 mls @ 999 mls/hr 09/22/21 20:45 09/22/21 21:06 Normal Saline IV 999 mls/hr ASDIRECTED LAURA Administration Sodium Chloride 10 ml 09/22/21 18:04 09/22/21 18:31 Sodium Chloride 0.9% 10 Ml Syringe FLUSH 10 ml ASDIRECTED PRN Administration Keep Vein Open Discontinued Medications Generic Name Dose Route Start Last Admin Trade Name Freq PRN Reason Stop Dose Admin Iopamidol 100 ml 09/22/21 19:57 09/22/21 20:16 Iopamidol 612 Mg/Ml 100 Ml Bottle IVPUSH 09/22/21 19:58 100 ml ONETIME STA Administration Iopamidol Confirm 09/22/21 19:47 Iopamidol 612 Mg/Ml 100 Ml Bottle Administered 09/22/21 19:48 Dose 100 ml .ROUTE .[facility] - Radiology Interpretation Free Text/Narrative:: chest x-ray heart normal in size. lungs are hypoinflated and clear. 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 no acute abnormality in the abdomen and pelvis. renal stones non obstructive measuring up to 14 mm. cholelithiasis, diverticulosis \ head ct with global atrophy, no acte interpreted by radiology - Re-Assessments/Exams Free Text/Narrative Re-Assessment/Exam: 09/22/21 18:[address] an IV and give one liter bolus, check ekg, labs, urine with cath specimen, chest x-ray and ct head. He was seen in the ED one month ago for falls, according to the record was alert, conservative and orientated. No head ct done at the time. not on a blood thinner. does have a cough, chest x-ray obtained. patient does have a history of tachycardia when looking at old notes. rate usually mid 90's 09/22/21 18:38 leukocytosis of uncertain etiology, awaiting chest x-ray and urine. no abd ominal pain. infection versus trauma response, unsure length of time on floor? 09/22/21 20:45 doing better. third liter of fluid will be given not able to give a urine. no signs of infection. reactive leukocytosis due to trauma probable. [place] [facility] 09/22/21 20:51 patient does have history of elevated lactic acid without cause. may be due to medication and or prolonged fall and down time. extensive skin exam without break down. healing lesions on knees. 09/22/21 21:11 patient is doing well, incontinent in his depends. nursing unable to cath him. going to suggest close follow up with repeat labs in 3 days with PCP, possible urine collection at the [facility]. Return as needed. Patient is confused, but pleasantly so. No indications for MRI or transfer. No source of infection found. Departure - Departure Time of Disposition: 21:14 Disposition: DC[facility] Condition: Fair Clinical Impression: Confusion, Dehydration, Leukocytosis, unspecified - Discharge Information Instructions: Dehydration, Elderly, [id number] Referrals: PCP,None [Primary Care Provider] - Forms: ED Department Discharge Additional Instructions: Testing today revealed dehydration which was treated with three liters of fluid. No acute findings on chest xray, head ct or abdominal ct. white count was e levated but can be due to trauma and has history of elevation without infection. THis needs to be followed closely. We were unable to cath the patient for a urine, this may be a suggestion along with close follow up with PCP on Saturday and repeat labs. Sepsis Event Note (ED) - Evaluation Sepsis Screening Result: No Definite Risk - Focused Exam Vital Signs: Vital Signs Temp Pulse Resp BP Pulse Ox 09/22/21 17:31 35.8 C L 95 24 H 137/50 L 99 - My Orders Last 24 Hours: My Active Orders 09/22/21 18:04 EKG Documentation Completion [RC] ASDIRECTED Peripheral IV Care [RC] . DIRECTED Chest 1V Frontal [CR] Stat Head wo Cont [CT] Stat UA RFX SARAN AND CULT IF INDIC [URIN] Stat Sodium Chloride 0.9% [Saline Flush] 10 ml FLUSH ASDIRECTED PRN Peripheral IV Insertion Adult [OM.PC] Routine EKG 12 Lead [EK] Stat 09/22/21 18:15 Sodium Chloride 0.9% [Normal Saline] 1,000 ml IV ASDIRECTED 09/22/21 19:38 Abdomen Pelvis w Cont [CT] Stat 09/22/21 19:45 Sodium Chloride 0.9% [Normal Saline] 1,000 ml IV ASDIRECTED 09/22/21 20:45 Sodium Chloride 0.9% [Normal Saline] 1,000 ml IV ASDIRECTED - Assessment/Plan Last 24 Hours: My Active Orders 09/22/21 18:04 EKG Documentation Completion [RC] ASDIRECTED Peripheral IV Care [RC] . DIRECTED Chest 1V Frontal [CR] Stat Head wo Cont [CT] Stat UA RFX SARAN AND CULT IF INDIC [URIN] Stat Sodium Chloride 0.9% [Saline Flush] 10 ml FLUSH ASDIRECTED PRN Peripheral IV Insertion Adult [OM.PC] Routine EKG 12 Lead [EK] Stat 09/22/21 18:15 Sodium Chloride 0.9% [Normal Saline] 1,000 ml IV ASDIRECTED 09/22/21 19:38 Abdomen Pelvis w Cont [CT] Stat 09/22/21 19:45 Sodium Chloride 0.9% [Normal Saline] 1,000 ml IV ASDIRECTED 09/22/21 20:45 Sodium Chloride 0.9% [Normal Saline] 1,000 ml IV ASDIRECTED
[2021-09-22 18:46] LABS: ANION GAP 18.3 meq/L (7-15)
[2021-09-22] MEDS ORDERED: Iopamidol 612 MG/ML 100 ML Bottle ONE (19:47)
[2021-09-22] MEDS ORDERED: Iopamidol 612 MG/ML 100 ML Bottle IVPUSH STA (19:57)
== END 2021-09-22 22:25 ==
LOC: LL.ED 17:27
DX: E86.0 Dehydration (principal); D72.829 Elevated white blood cell count, unspecified; R41.0 Disorientation, unspecified; I13.0 Hypertensive heart and chronic kidney disease with heart failure and stage 1 through stage 4 chronic kidney disease, or unspecified chronic kidney disease; E11.22 Type 2 diabetes mellitus with diabetic chronic kidney disease; N18.9 Chronic kidney disease, unspecified; I50.9 Heart failure, unspecified; E78.00 Pure hypercholesterolemia, unspecified; J44.9 Chronic obstructive pulmonary disease, unspecified; E66.9 Obesity, unspecified; Z68.36 Body mass index [BMI] 36.0-36.9, adult; Z87.891 Personal history of nicotine dependence; Z79.4 Long term (current) use of insulin; Z79.899 Other long term (current) drug therapy
CPT/HCPCS: 36415; 70450; 71045; 74177; 80053; 81001; 81003; 82140; 82550; 83605; 84484; 85025; 86140; 87086; 93005; 99285; J7030; Q9967

== ENCOUNTER 2023-10-18 16:19 | Emergency (ER) | payer OTHER, MEDICARE ==
[2023-10-18] MEDS ORDERED: Sodium Chloride 0.9% 10 ML Syringe FLUSH PRN (16:37)
[2023-10-18 16:47] LABS: BASOPHILS ABSOLUTE AUTO 0.06 K/uL (0.00-0.20); BASOPHILS PERCENT AUTO 0.5 % (0.0-2.0); EOSINOPHILS ABSOLUTE AUTO 0.06 K/uL (0.00-0.50); EOSINOPHILS PERCENT AUTO 0.5 % (0.0-5.0); HEMATOCRIT 53.4 % (39.0-49.0); HEMOGLOBIN 17.3 g/dL (13.1-16.8); LYMPHOCYTES ABSOLUTE AUTO 0.97 K/uL (0.50-3.50); LYMPHOCYTES PERCENT AUTO 8.9 % (10.0-50.0); MEAN CORPUSCULAR HGB CONC 32.4 g/dL (31.7-36.0); MEAN CORPUSCULAR VOLUME 86.4 fL (84.0-98.0); MONOCYTES ABSOLUTE AUTO 1.13 K/uL (0.00-1.00); MONOCYTES PERCENT AUTO 10.3 % (2.0-14.0); NEUTROPHILS ABSOLUTE AUTO 8.73 K/uL (1.40-7.00); NEUTROPHILS PERCENT AUTO 79.8 % (45.0-80.0); PLATELET COUNT,PLT 302 K/uL (150-350); RED BLOOD CELL COUNT 6.18 M/uL (4.33-5.41); RED CELL DISTRIBUTION WIDTH 16.7 % (11.2-14.1)
[2023-10-18 17:02] LABS: PROTHROMBIN TIME 10.4 SEC (9.0-11.1)
[2023-10-18] MEDS ORDERED: Lidocaine 2% HCl 11 ML Jelly Filled Syringe ONE (17:07)
[2023-10-18] MEDS ORDERED: Lidocaine 2% HCl 11 ML Jelly Filled Syringe TOP ONE (17:07)
[2023-10-18 17:11] LABS: ALBUMIN 3.1 g/dL (3.4-5.0); ANION GAP 19.2 meq/L (7-15); BILIRUBIN TOTAL 0.7 mg/dL (0.2-1.0); CARBON DIOXIDE,CO2 23.6 mmol/L (21.0-32.0); CREATININE 1.43 mg/dL (0.51-1.17); EST CRCL DRUG DOSING (CG) 41.09 mL/min; POTASSIUM,K 3.8 mmol/L (3.5-5.1); PROTEIN TOTAL,TP 7.4 g/dL (6.4-8.2)
[2023-10-18 17:24] LABS: APPEARANCE,URINE TURBID; BILIRUBIN,URINE NEGATIVE (NEGATIVE); COLOR,URINE YELLOW; GLUCOSE,URINE 500 mg/dL (NEGATIVE); KETONES,URINE NEGATIVE (NEGATIVE); LEUKOCYTE ESTERASE,URINE NEGATIVE (NEGATIVE); NITRITE,URINE NEGATIVE (NEGATIVE); OCCULT BLOOD,URINE MODERATE (NEGATIVE); PROTEIN,URINE NEGATIVE (NEGATIVE); UROBILINOGEN,URINE 0.2 E.U./dL (0.2-1.0)
[2023-10-18 17:28] LABS: CORONAVIRUS COVID-19 NAA NEGATIVE (NEGATIVE); INFLUENZA A NAA NEGATIVE (NEGATIVE); INFLUENZA B NAA NEGATIVE (NEGATIVE); RESPIRATORY SYNCYTIAL VIR NAA NEGATIVE (NEGATIVE)
[2023-10-18 17:31] LABS: RBC,URINE 20-30 /HPF; WBC,URINE 0-5 /HPF
[2023-10-18] MEDS ORDERED: Sodium Chloride 0.9% 500 ML IV ONE (17:45)
== END 2023-10-18 18:45 ==
LOC: LL.ED 16:19
DX: E86.0 Dehydration (principal); I13.0 Hypertensive heart and chronic kidney disease with heart failure and stage 1 through stage 4 chronic kidney disease, or unspecified chronic kidney disease; E11.22 Type 2 diabetes mellitus with diabetic chronic kidney disease; N18.9 Chronic kidney disease, unspecified; I50.9 Heart failure, unspecified; E78.00 Pure hypercholesterolemia, unspecified; J44.9 Chronic obstructive pulmonary disease, unspecified; E66.9 Obesity, unspecified; Z68.33 Body mass index [BMI] 33.0-33.9, adult; Z79.84 Long term (current) use of oral hypoglycemic drugs; Z79.4 Long term (current) use of insulin; Z20.822 Contact with and (suspected) exposure to COVID-19; Z79.899 Other long term (current) drug therapy
CPT/HCPCS: 0241U; 36415; 80053; 81001; 83880; 84484; 85025; 85610; 93005; 93010; 96360; 99284; 99285-25; A9270-GY; J7040

== ENCOUNTER 2025-01-29 12:12 | Inpatient (IN) | payer MEDICARE, OTHER ==
[2025-01-29 12:43] LABS: BASOPHILS ABSOLUTE AUTO 0.04 K/uL (0.00-0.20); BASOPHILS PERCENT AUTO 0.4 % (0.0-2.0); EOSINOPHILS ABSOLUTE AUTO 0.06 K/uL (0.00-0.50); EOSINOPHILS PERCENT AUTO 0.6 % (0.0-5.0); HEMATOCRIT 48.8 % (39.0-49.0); HEMOGLOBIN 15.3 g/dL (13.1-16.8); IMMATURE GRAN ABSOLUTE AUTO 0.02 10^3/uL (0.00-0.04); IMMATURE GRAN PERCENT AUTO 0.2 % (0.0-0.4); LYMPHOCYTES ABSOLUTE AUTO 0.73 K/uL (0.50-3.50); LYMPHOCYTES PERCENT AUTO 7.9 % (10.0-50.0); MEAN CORPUSCULAR HEMOGLOBIN 28.5 pg (28.2-33.3); MEAN CORPUSCULAR HGB CONC 31.4 g/dL (31.7-36.0); MEAN CORPUSCULAR VOLUME 90.9 fL (84.0-98.0); MONOCYTES ABSOLUTE AUTO 0.84 K/uL (0.00-1.00); MONOCYTES PERCENT AUTO 9.1 % (2.0-14.0); NEUTROPHILS ABSOLUTE AUTO 7.58 K/uL (1.40-7.00); NEUTROPHILS PERCENT AUTO 81.8 % (45.0-80.0); PLATELET COUNT,PLT 262 K/uL (150-350); RED BLOOD CELL COUNT 5.37 M/uL (4.33-5.41); RED CELL DISTRIBUTION WIDTH 14.4 % (11.2-14.1); WHITE BLOOD CELL COUNT,WBC 9.3 K/uL (4.0-10.2)
[2025-01-29 13:10] LABS: PROTHROMBIN TIME 10.3 SEC (9.0-11.1); PTT,PARTIAL THROMBOPLSTIN TIME 31.2 SEC (23.8-34.4)
[2025-01-29 13:15] LABS: LACTIC ACID 2.6 mmol/L (0.4-2.0)
[2025-01-29 13:17] LABS: ALBUMIN 3.1 g/dL (3.4-5.0); BILIRUBIN TOTAL 0.4 mg/dL (0.2-1.0); CALCIUM 9.4 mg/dL (8.5-10.1); CARBON DIOXIDE,CO2 27.6 mmol/L (21.0-32.0); CREATININE 1.71 mg/dL (0.51-1.17); EST CRCL DRUG DOSING (CG) 33.82 mL/min; POTASSIUM,K 4.3 mmol/L (3.5-5.1); PROTEIN TOTAL,TP 7.5 g/dL (6.4-8.2)
[2025-01-29 13:20] LABS: ANION GAP 13.7 meq/L (7-15)
[2025-01-29] MEDS: Sodium Chloride 0.9% 1,000 ML IV SCH (13:55)
[2025-01-29] MEDS: methylPREDNISolone Sodium Succinate 40 MG/1 ML SDV IVPUSH ONE (14:24)
[2025-01-29] MEDS: guaiFENesin 600 MG Tab.ER PO ONE (15:18)
[2025-01-29] MEDS: Albuterol/Ipratropium 3.0-0.5 MG/3 ML Neb Soln NEB ONE (15:21)
[2025-01-29] MEDS ORDERED: Ondansetron 4 MG Tab.DIS PO PRN (17:36)
[2025-01-29] MEDS ORDERED: Acetaminophen 325 MG Tab PO PRN (17:36)
[2025-01-29] MEDS ORDERED: 50% Dextrose in Water 50 ML Syringe IVPUSH PRN ×2 (17:55→18:02)
[2025-01-29] MEDS ORDERED: Glucagon,Human Recombinant 1 MG Vial IM PRN ×2 (17:55→18:02)
[2025-01-29] MEDS ORDERED: Albuterol 6.7 GM Inhaler INH PRN (18:02)
[2025-01-29] MEDS ORDERED: Polyethylene Glycol 3350 Powder 17 GM Packet PO PRN (18:02)
[2025-01-29] MEDS ORDERED: Polyvinyl Alcohol 1.4% Ophth Soln 15 ML Bottle EYEBOTH PRN (18:02)
[2025-01-29] MEDS: Insulin Lispro 100 Units/ML 3 ML Vial SUBCUT SCH (18:47)
[2025-01-29] MEDS: cefTRIAXone 1 GM Vial IVPUSH SCH (18:55)
[2025-01-29] MEDS: Insulin Glarg,Human.Rec.Analog 100 Unit/ML 10 ML Vial SUBCUT SCH (19:27)
[2025-01-29] MEDS: Sodium Chloride 0.9% 10 ML Syringe FLUSH PRN (19:37)
[2025-01-29] MEDS: Azithromycin 500 MG in Sodium Chloride 0.9% 250 ML IV SCH (19:37)
[2025-01-29] MEDS: Pantoprazole 40 MG Tab.CR PO SCH (19:39)
[2025-01-29] MEDS: Acetaminophen 500 MG Tab PO SCH (19:39)
[2025-01-29] MEDS: Metoprolol Tartrate 25 MG Tab PO SCH (19:40)
[2025-01-29] MEDS: traZODone 50 MG Tab PO SCH (19:43)
[2025-01-29] MEDS: Ferrous Sulfate 325 MG Tab PO SCH (19:44)
[2025-01-29] MEDS: Sennosides/Docusate Sodium 50-8.6 MG Tab PO SCH (19:44)
[2025-01-29] MEDS: Melatonin 3 MG Tab PO SCH (19:45)
[2025-01-29] MEDS: atorvaSTATin 20 MG Tab PO SCH (19:45)
[2025-01-29] MEDS: Gabapentin 100 MG Cap PO SCH (19:46)
[2025-01-29] MEDS: Gabapentin 400 MG Cap PO SCH (19:46)
[2025-01-29] MEDS: Formoterol/Mometasone 200-5 MCG 8.8 GM Inhaler INH SCH (19:46)
[2025-01-29] MEDS ORDERED: Sodium Chloride 0.9% 1,000 ML IV SCH (21:00)
[2025-01-29] MEDS: Ampicillin/Sulbactam Na 3 GM in Sodium Chloride 0.9% 100 ML IV SCH (21:33)
[2025-01-29] MEDS: Albuterol/Ipratropium 3.0-0.5 MG/3 ML Neb Soln NEB SCH (21:38)
[2025-01-30] MEDS: Furosemide 20 MG Tab PO SCH (08:44)
[2025-01-30] MEDS: Cholecalciferol (Vitamin D3) 25 MCG Tab PO SCH (08:45)
[2025-01-30] MEDS: Losartan 25 MG Tab PO SCH (08:46)
[2025-01-30] MEDS: Gabapentin 100 MG Cap PO SCH (08:46)
[2025-01-30] MEDS: Enoxaparin 40 MG/0.4 ML Syringe SUBCUT SCH (08:46)
[2025-01-30] MEDS: methylPREDNISolone Sodium Succinate 40 MG/1 ML SDV IVPUSH SCH (08:46)
[2025-01-30 08:53] LABS: BASOPHILS ABSOLUTE AUTO 0.01 K/uL (0.00-0.20); BASOPHILS PERCENT AUTO 0.1 % (0.0-2.0); EOSINOPHILS ABSOLUTE AUTO 0.02 K/uL (0.00-0.50); EOSINOPHILS PERCENT AUTO 0.3 % (0.0-5.0); HEMATOCRIT 42.2 % (39.0-49.0); HEMOGLOBIN 13.1 g/dL (13.1-16.8); IMMATURE GRAN ABSOLUTE AUTO 0.01 10^3/uL (0.00-0.04); IMMATURE GRAN PERCENT AUTO 0.1 % (0.0-0.4); LYMPHOCYTES ABSOLUTE AUTO 1.06 K/uL (0.50-3.50); LYMPHOCYTES PERCENT AUTO 14.3 % (10.0-50.0); MEAN CORPUSCULAR HEMOGLOBIN 28.2 pg (28.2-33.3); MEAN CORPUSCULAR VOLUME 90.9 fL (84.0-98.0); MONOCYTES ABSOLUTE AUTO 0.76 K/uL (0.00-1.00); MONOCYTES PERCENT AUTO 10.3 % (2.0-14.0); NEUTROPHILS ABSOLUTE AUTO 5.54 K/uL (1.40-7.00); NEUTROPHILS PERCENT AUTO 74.9 % (45.0-80.0); PLATELET COUNT,PLT 273 K/uL (150-350); RED BLOOD CELL COUNT 4.64 M/uL (4.33-5.41); RED CELL DISTRIBUTION WIDTH 14.4 % (11.2-14.1); WHITE BLOOD CELL COUNT,WBC 7.4 K/uL (4.0-10.2)
[2025-01-30 09:00] LABS: CALCIUM 8.6 mg/dL (8.5-10.1); CARBON DIOXIDE,CO2 32.7 mmol/L (21.0-32.0); CREATININE 1.31 mg/dL (0.51-1.17); EST CRCL DRUG DOSING (CG) 44.15 mL/min; MAGNESIUM 2.2 mg/dL (1.8-2.4); POTASSIUM,K 3.9 mmol/L (3.5-5.1)
[2025-01-30] MEDS: Sodium Chloride 0.9% 100 ML IV SCH (09:00)
[2025-01-30 09:13] LABS: ANION GAP 8.2 meq/L (7-15)
[2025-01-30] MEDS: FLUoxetine 20 MG Cap PO SCH (09:52)
[2025-01-30] MEDS: FLUoxetine 10 MG Cap PO SCH (09:53)
[2025-01-31 08:07] LABS: BASOPHILS ABSOLUTE AUTO 0.04 K/uL (0.00-0.20); BASOPHILS PERCENT AUTO 0.5 % (0.0-2.0); EOSINOPHILS ABSOLUTE AUTO 0.07 K/uL (0.00-0.50); EOSINOPHILS PERCENT AUTO 0.9 % (0.0-5.0); HEMATOCRIT 42.5 % (39.0-49.0); HEMOGLOBIN 13.3 g/dL (13.1-16.8); IMMATURE GRAN ABSOLUTE AUTO 0.02 10^3/uL (0.00-0.04); IMMATURE GRAN PERCENT AUTO 0.3 % (0.0-0.4); LYMPHOCYTES ABSOLUTE AUTO 1.36 K/uL (0.50-3.50); LYMPHOCYTES PERCENT AUTO 18.1 % (10.0-50.0); MEAN CORPUSCULAR HEMOGLOBIN 28.3 pg (28.2-33.3); MEAN CORPUSCULAR HGB CONC 31.3 g/dL (31.7-36.0); MEAN CORPUSCULAR VOLUME 90.4 fL (84.0-98.0); MONOCYTES PERCENT AUTO 9.3 % (2.0-14.0); NEUTROPHILS ABSOLUTE AUTO 5.32 K/uL (1.40-7.00); NEUTROPHILS PERCENT AUTO 70.9 % (45.0-80.0); PLATELET COUNT,PLT 255 K/uL (150-350); RED CELL DISTRIBUTION WIDTH 14.2 % (11.2-14.1); WHITE BLOOD CELL COUNT,WBC 7.5 K/uL (4.0-10.2)
[2025-01-31 08:39] LABS: CALCIUM 8.7 mg/dL (8.5-10.1); CARBON DIOXIDE,CO2 32.8 mmol/L (21.0-32.0); CREATININE 1.39 mg/dL (0.51-1.17); EST CRCL DRUG DOSING (CG) 41.61 mL/min; POTASSIUM,K 3.6 mmol/L (3.5-5.1)
[2025-01-31 08:43] LABS: ANION GAP 9.8 meq/L (7-15)
[2025-01-31] MEDS: Polyethylene Glycol 3350 Powder 17 GM Packet PO SCH (09:10)
[2025-02-01 07:57] LABS: BASOPHILS ABSOLUTE AUTO 0.04 K/uL (0.00-0.20); BASOPHILS PERCENT AUTO 0.5 % (0.0-2.0); EOSINOPHILS ABSOLUTE AUTO 0.05 K/uL (0.00-0.50); EOSINOPHILS PERCENT AUTO 0.6 % (0.0-5.0); HEMATOCRIT 44.5 % (39.0-49.0); HEMOGLOBIN 14.2 g/dL (13.1-16.8); IMMATURE GRAN ABSOLUTE AUTO 0.02 10^3/uL (0.00-0.04); IMMATURE GRAN PERCENT AUTO 0.2 % (0.0-0.4); LYMPHOCYTES ABSOLUTE AUTO 1.43 K/uL (0.50-3.50); LYMPHOCYTES PERCENT AUTO 16.3 % (10.0-50.0); MEAN CORPUSCULAR HGB CONC 31.9 g/dL (31.7-36.0); MEAN CORPUSCULAR VOLUME 90.8 fL (84.0-98.0); MONOCYTES PERCENT AUTO 9.1 % (2.0-14.0); NEUTROPHILS ABSOLUTE AUTO 6.43 K/uL (1.40-7.00); NEUTROPHILS PERCENT AUTO 73.3 % (45.0-80.0); PLATELET COUNT,PLT 286 K/uL (150-350); RED CELL DISTRIBUTION WIDTH 14.2 % (11.2-14.1); WHITE BLOOD CELL COUNT,WBC 8.8 K/uL (4.0-10.2)
[2025-02-01 08:10] LABS: CALCIUM 8.8 mg/dL (8.5-10.1); CARBON DIOXIDE,CO2 35.7 mmol/L (21.0-32.0); CREATININE 1.35 mg/dL (0.51-1.17); EST CRCL DRUG DOSING (CG) 42.84 mL/min; POTASSIUM,K 3.7 mmol/L (3.5-5.1)
== END 2025-02-01 11:45 | DRG 178 ==
LOC: LL.ED 12:12 → LL.MS 17:00 → UNDOADMIN 17:00 → LL.MS 17:36
PROVIDERS: ADMIT Physician Assistant; ATTEND Physician Assistant
DX: J69.0 Pneumonitis due to inhalation of food and vomit (principal); E87.20 Acidosis, unspecified; I13.0 Hypertensive heart and chronic kidney disease with heart failure and stage 1 through stage 4 chronic kidney disease, or unspecified chronic kidney disease; J44.0 Chronic obstructive pulmonary disease with (acute) lower respiratory infection; J44.1 Chronic obstructive pulmonary disease with (acute) exacerbation; J18.9 Pneumonia, unspecified organism; E11.22 Type 2 diabetes mellitus with diabetic chronic kidney disease; Z79.2 Long term (current) use of antibiotics; Z79.4 Long term (current) use of insulin; I50.9 Heart failure, unspecified; Z68.32 Body mass index [BMI] 32.0-32.9, adult; R79.89 Other specified abnormal findings of blood chemistry; N18.9 Chronic kidney disease, unspecified; E78.00 Pure hypercholesterolemia, unspecified; E11.51 Type 2 diabetes mellitus with diabetic peripheral angiopathy without gangrene; G89.29 Other chronic pain; M54.9 Dorsalgia, unspecified; E66.9 Obesity, unspecified; D63.1 Anemia in chronic kidney disease; F51.01 Primary insomnia; K21.00 Gastro-esophageal reflux disease with esophagitis, without bleeding; Z66 Do not resuscitate; Z79.1 Long term (current) use of non-steroidal anti-inflammatories (NSAID); Z79.51 Long term (current) use of inhaled steroids; Z79.899 Other long term (current) drug therapy; Z79.02 Long term (current) use of antithrombotics/antiplatelets; Z79.84 Long term (current) use of oral hypoglycemic drugs; Z99.81 Dependence on supplemental oxygen; Z98.890 Other specified postprocedural states
CPT/HCPCS: 36415; 71045; 80048; 80053; 82947; 83605; 83735; 83880; 84484; 85025; 85610; 85730; 93005; 93010; 94640; 96374; 99223; 99232; 99233; 99239; 99285-25; A9270-GY; J0295; J0456; J0696; J1650; J1815-GY; J2919; J7030